=== PATIENT | male | born 1970 | race Caucasian/White ===

== ENCOUNTER 2023-03-17 07:25 | Inpatient (IN) ==
--- NOTE | 2023-03-13 14:57 | Anesthesiology Consultation ---
Date of Service March 13, 2023 Assessment & Plan (1) Encounter for pre-operative examination: Chart Review Chart Review: Pending: Refer to Additional Notes / Consult section (pending cardio clearance ) and Patient NOT seen in Pre Admission Testing - Please obtain cardiac clearance ([facility]) 03/12/23 - Please send preop testing to PCP (Dr Dafne Adan) per PCP request - Will leave to anesthesiologist's discretion if CXR needed DOS (hx of RA) -Infectious Disease screening: Per PAT nursing assessment on 03/13/23. No known infectious disease contacts in past 10 days or current infectious disease symptoms. No recent travel outside the country. Patient seen for PCP clearance 03/07/2023 = presents for preop evaluation. A ccording to the revised cardiac risk index, patient does have elevated risk for surgery... Therefore, patient is at least moderate risk for a low to moderate risk surgery. Refer to cardiology for cardiac clearance. History of CAD and percutaneous coronary intervention x2. We will see for preop 03/12/2023. Preop testing done at [facility]- will request copies. History Surgery Operation Date: 03/17/23 07:45 Proposed Procedures p L4-L5 Decomrpession, Possible Fusion, Spinal Cord Monitoring - David Stern, Height/Weight Height: 6 ft 3 in Weight: 136.531 kg Allergies Allergy/AdvReac Type Severity Reaction Status Date / Time epinephrine Allergy Intermediate "my BP Verified 03/10/23 13:17 drops, chest pain, hives" Medications Home Medications Medication Instructions Recorded Confirmed Last Taken aspirin 81 mg tablet,delayed 81 mg PO QAM 03/10/23 03/10/23 Unknown release bupropion HCl 100 mg tablet 200 mg PO BID 03/10/23 03/10/23 Unknown clopidogrel 75 mg tablet 75 mg PO QAM 03/10/23 03/10/23 Unknown duloxetine 60 mg capsule,delayed 60 mg PO QAM 03/10/23 03/10/23 Unknown release hydrochlorothiazide 25 mg tablet 25 mg PO QAM 03/10/23 03/10/23 Unknown lisinopril 40 mg tablet 40 mg PO HS 03/10/23 03/10/23 Unknown metoprolol tartrate 50 mg tablet 50 mg PO BID 03/10/23 03/10/23 Unknown multivitamin 1 tab PO QAM 03/10/23 03/10/23 Unknown rosuvastatin 20 mg tablet 20 mg PO HS 03/10/23 03/10/23 Unknown Past Medical History Medical History Anxiety CAD (coronary artery disease) s/p ANIKA and PTCA to OM1 07/[address] Watters Hadeed History of kidney stones Hyperlipidemia Hypertension On anticoagulant therapy plavix daily Rheumatoid arthritis Per PCP records Past Family History Family History Other No family history of adverse response to anesthesia Past Surgical History Surgical History History of cardiac cath 07/2021 @ [facility] for angina---2 stents placed--follows with Dr. Watters Hadeed History of cholecystectomy History of hand surgery left pinky finger--hardware later removed History of heart artery stent 2 placed 07/2021 @ [facility]--reason for plavix daily History of tooth extraction all upper teeth removed S/P cystoscopy with ureteral stent placement S/P hardware removal Social History Smoking Status: Former smoker Do You Dip or Chew Tobacco: No Smoking End Date: quit 2 1/2 months ago Hx Alcohol Use: No Hx Substance Use: No substance use type: does not use Lab Results Anesthesia Preop Results Results Anesthesia Widget: WBC 7.66 K/ul (4.8-10.8) 03/05/23 Hgb 14.5 g/dl (14.0-18.0) 03/05/23 Hct 42.6 % (42.0-52.0) 03/05/23 Plt 224 K/uL (130-400) 03/05/23 Na 139 mmol/L (136-145) 03/05/23 K 3.8 mmol/L (3.5-5.1) 03/05/23 Cl 102 mmol/L (98-107) 03/05/23 CO2 29 mmol/L (21-32) 03/05/23 BUN 12 mg/dl (6-23) 03/05/23 Creat 0.99 mg/dl (0.6-1.4) 03/05/23 Glucose Level 107 mg/dl (70-99(Fasting)) H 03/05/23 PT 11.3 Seconds (9.0-12.0) 03/05/23 PTT 29.9 Seconds (21.0-31.0) 03/05/23 INR 1.0 (0.9-1.1) 03/05/23 Urine Color Yellow 03/05/23 Urine Appearance Clear (Clear) 03/05/23 Urine pH 5.5 (4.5-7.5) 03/05/23 Urine Specific [place] 1.020 (1.000-1.030) 03/05/23 Urine Protein Negative (Negative) 03/05/23 Urine Glucose (UA) Negative (Negative) 03/05/23 Urine Ketones Negative (Negative) 03/05/23 Urine Blood Trace (Negative) H 03/05/23 Urine Nitrite Negative (Negative) 03/05/23 Urine Bilirubin Negative (Negative) 03/05/23 Urine Urobilinogen Negative (Negative) 03/05/23 Urine Leukocyte Esterase Negative (Negative) 03/05/23 Urine WBC (Auto) 1-5 /hpf (0-5) 03/05/23 Urine RBC (Auto) 0-4 /hpf (0-4) 03/05/23 Urine Hyaline Casts (Auto) 1-5 /lpf (0-5) 03/05/23 Urine Epithelial Cells (Auto) 5-10 /lpf (0-5) H 03/05/23 Urine Bacteria (Auto) Negative (Negative) 03/05/23 Blood Type A Positive 03/05/23 Antibody Screen NEGATIVE 03/05/23 Testing Laboratory Results 03/05/23= URINE CULTURE: No growth- less than 1000 colonies/mL Electrocardiogram Date: 03/05/23 Findings: + NSR @ (85bpm ) Rightward axis Chest X-Ray Date: 03/05/23 Findings: + NAD Echocardiogram Date: 09/07/21 EF: 65% LV Function: normal Other Findings: no LVH Valvular Disease: + no significant valvular disease LV not well visualized No pericardial effusion Stress Test Date: 10/15/22 Type: nuclear Valvular Disease: no significant valvular disease No stress-induced ischemia or angina Myocardial perfusion imaging is normal. Overall LV function is normal. Cardiac Catheterization Date: 08/02/21 LM= mild luminal irregularities LAD= mild luminal irregularities <30%; tubular 15% ostial lesion in LAD CX= Severe. OM 1 95-99%. OM2 95-99% RCA= <30% Successful PCI with ANIKA and PTCA to the OM1
[~2023-03-17 07:25] MED LIST: ACETAMINOPHEN 500 MG TAB PO SCH; CeleBREX 200 MG CAP PO SCH; GABAPENTIN 900 MG DOSE PO SCH; LR 15ML/HR IV SCH; LR 60ML/HR IV SCH
--- NOTE | 2023-03-17 09:30 | History & Physical Bridge Note ---
Date of Service March 17, 2023 History & Physical Bridge Note I have examined the patient, reviewed the History & Physical and in the interval since the performance of the History & Physical I have noted the following changes of clinical significance: no changes noted
--- NOTE | 2023-03-17 09:31 | History & Physical Report ---
Date of Service March 17, 2023 Assessment & Plan (1) Neurogenic claudication due to lumbar spinal stenosis: Plan: L4-5 decompression, possible fusion decompression L5-S1 History of Present Illness Chief Complaint: Back and bilateral leg pain Primary Care Provider: Dafne Adan DO This is a 52-year-old male who presents with chronic persistent back and leg pain and failing course of nonoperative care is here for surgical invention. Allergies Allergy/AdvReac Type Severity Reaction Status Date / Time epinephrine Allergy Intermediate "my BP Verified 03/10/23 13:17 drops, chest pain, hives" Home Medications Medication Instructions Recorded Confirmed Type aspirin 81 mg tablet,delayed 81 mg PO QAM 03/10/23 03/17/23 History release bupropion HCl 100 mg tablet 200 mg PO BID 03/10/23 03/17/23 History clopidogrel 75 mg tablet (Plavix) 75 mg PO QAM 03/10/23 03/17/23 History duloxetine 60 mg capsule,delayed 60 mg PO QAM 03/10/23 03/17/23 History release (Cymbalta) hydrochlorothiazide 25 mg tablet 25 mg PO QAM 03/10/23 03/17/23 History lisinopril 40 mg tablet 40 mg PO HS 03/10/23 03/17/23 History metoprolol tartrate 50 mg tablet 50 mg PO BID 03/10/23 03/17/23 History multivitamin 1 tab PO QAM 03/10/23 03/17/23 History rosuvastatin 20 mg tablet (Crestor) 20 mg PO HS 03/10/23 03/17/23 History Past Med/Surg History Medical History Anxiety CAD (coronary artery disease) s/p ANIKA and PTCA to OM1 07/[address] Watters Hadeed History of kidney stones Hyperlipidemia Hypertension On anticoagulant therapy plavix daily Rheumatoid arthritis Per PCP records Surgical History History of cardiac cath 07/2021 @ [facility] for angina---2 stents placed--follows with Dr. Duong Lyeed History of cholecystectomy History of hand surgery left pinky finger--hardware later removed History of heart artery stent 2 placed 07/2021 @ [facility]--reason for plavix daily History of tooth extraction all upper teeth removed S/P cystoscopy with ureteral stent placement S/P hardware removal Family History Other No family history of adverse response to anesthesia Social History Smoking Status: Former smoker Tobacco Type: Cigarettes Smoking End Date: quit 2 1/2 months ago; Second Hand Exposure: No; Do You Dip or Chew Tobacco: No; Tobacco Cessation Education Requested by Patient: No Hx Alcohol Use: No Hx Substance Use: No Preferred Language: Guyanese Communication Ability: Effective Yard Attendant Required: No Beliefs That Will Affect Care: Sabianist Sabianist Beliefs: Religious Current Living Situation: Spouse and Parent Current Living Situation Comment: Lives with and mother Other Information That Helps Us Care for You: No Feels Safe at Home: Yes Safety Concerns: Feels Safe At This Time Assistive Devices: Cane and Glasses Physical Exam Physical Exam: Patient is alert and oriented Heart regular rhythm Lungs clear Results & Data Results & Data Vital Signs (Past 12 Hours) Vital Signs Temp Pulse Resp BP Pulse Ox O2 Del Method 03/17/23 08:29 36.8 C 91 H 20 136/96 95 Room Air
[2023-03-17] MEDS ORDERED: ePHEDrine sulfate 50 MG/ML AMP IV PRN (09:32)
[2023-03-17] MEDS ORDERED: fentaNYL citrate PF 100 MCG/2 ML VIAL IV PRN (09:32)
[2023-03-17] MEDS ORDERED: ATROPINE SULFATE 0.1 MG/ML 10ML SYR IV PRN (09:32)
[2023-03-17] MEDS ORDERED: HYDROmorphone INJ 2 MG/ML SYR/VIAL IV PRN (09:32)
[2023-03-17] MEDS ORDERED: ONDANSETRON INJ 2 MG/ML 2 ML VIAL IV PRN ×2 (09:32→12:37)
[2023-03-17] MEDS ORDERED: BUPIVACAINE/EPINEPHRINE 0.25% 1:200,000 30 ML VIAL ONE (09:37)
[2023-03-17] MEDS ORDERED: ceFAZolin 330 MG/ML 1 GM VIAL ONE (09:37)
[2023-03-17] MEDS ORDERED: BUPIVACAINE 0.25% PF 30 ML VIAL ONE (09:49)
[2023-03-17] MEDS ORDERED: ROCURONIUM BROMIDE 10 MG/ML 5 ML VIAL IV ONE (09:51)
[2023-03-17] MEDS ORDERED: MIDAZOLAM HCL 1 MG/ML 2ML VIAL ONE (09:51)
[2023-03-17] MEDS ORDERED: PROPOFOL IV EMULSION 10 MG/ML 20 ML VIAL IV ONE (09:51)
[2023-03-17] MEDS ORDERED: fentaNYL citrate PF 100 MCG/2 ML VIAL ONE (09:51)
[2023-03-17] MEDS ORDERED: LIDOCAINE 2% 2 ML VIAL/AMP(20MG/ML) INFIL ONE (09:51)
[2023-03-17] MEDS ORDERED: KETAMINE 50 MG/5 ML SYRINGE ONE (10:36)
[2023-03-17] MEDS ORDERED: PHENYLEPHRINE 100MCG/ML 5ML SYR ONE (11:04)
[2023-03-17] MEDS ORDERED: PHENYLEPHRINE HCL 10 MG/ML VIAL ONE (11:04)
[2023-03-17] MEDS ORDERED: SUGAMMADEX SODIUM 200 MG/2 ML VIAL IV ONE (11:11)
[2023-03-17] MEDS ORDERED: FLOSEAL HEMOSTATIC MATRIX 10ML TOP ONE (11:14)
--- NOTE | 2023-03-17 11:14 | Operative Report ---
Post Operative Report Pre & Post Diagnosis Operation Date: 03/17/23 09:45 Pre-Op Diagnosis: Neurogenic claudication due to Lumbar Spinal Stenosis Lumbar epidural lipomatosis Morbid obesity Post-Op Diagnosis: Same I identified the patient and participated in the time-out.: Yes Procedure Operation Date: 03/17/23 09:45 Actual Procedures #1 lumbar decompression with bilateral medial facetectomies L4-L5 L5-S1. Surgeon David Stern, DO Duplicating Machine Operator Triny Rajput Estimated Blood Loss 10 Findings See Below The patient is 6 foot 3 weighing over 140 kg with a BMI in excess of 38. Patient's body habitus did create technical difficulty with positioning exposure adding at least 50% increased operative time. Specimens none Indications This is a 52-year-old male presents above-mentioned diagnosis after failing a course of nonoperative care is here for surgical invention. Description of Procedure Patient was met with identified informed consent obtained. Patient was then taken to the operative suite underwent ablation placed in a prone position the [place] able to Von frame. All bony promises well-padded eyes inspected to ensure no external pressure placed upon the. This point the lumbar spine was prepped and draped in normal sterile fashion. Sharp dissection with the assistance of Bovie cautery form down to and exposing the lamina of L4 and L5 bilaterally. Then performed a midline decompression including bilateral medial facetectomies at L4-L5 L5-S1. I identified and removed massive amounts of epidural lipomatosis both anteriorly and posterior to the dura. This was creating significant compression. After this complete the incision was copiously irrigated a 15 round ROCIO drain inserted. Was then closed with 1 Vicryl to fascia 2-0 Vicryl subcutaneously and 4 Monocryl for final closure. Steri- Strips sterile dressing placed. Patient waken taken to PACU stable condition. Please note spinal cord monitoring was utilized at the procedure no changes noted. Lastly Triny Rajput was present at the entire surgery involved the patient positioning complex portion of the surgery and final skin closure. I attest to the content of the Intraoperative Record and any orders documented therein. Any exceptions are noted below.
[2023-03-17] MEDS ORDERED: HYDROmorphone INJ 2 MG/ML SYR/VIAL ONE (11:23)
--- NOTE | 2023-03-17 11:28 | Fluoroscopy Report ---
FL lumbar spine 2-3V CLINICAL HISTORY: L4-L5 DECOMPRESSION AND FUSION COMPARISON STUDY: None. FLUOROSCOPY TIME: 2 seconds FLUOROSCOPY IMAGES: 1 Ka,r: 2.5 mGy FINDINGS: A surgical instrument and a surgical sponge posterior to the L5-S1 level. IMPRESSION: Fluoroscopic assistance as above. ACT 112: Negative or not required by law. Electronically signed by: Sergio Boston M.D. 03/17/2023 11:26 AM
--- NOTE | 2023-03-17 12:13 | Anesthesiology Progress Note ---
Date of Service March 17, 2023 Anesthesia Post Procedure Vital Signs Vital Signs: Temp Pulse Pulse Resp BP Pulse Ox O2 Del Method 03/17/23 12:00 93 H 14 128/70 96 Nasal Cannula 03/17/23 11:50 95 H 12 133/75 95 Nasal Cannula 03/17/23 11:40 91 H 17 134/84 93 Oxymask 03/17/23 11:34 36 C L 89 19 137/83 97 Oxymask 03/17/23 08:29 36.8 C 91 H 20 136/96 95 Room Air O2 Flow Rate 03/17/23 12:00 4 03/17/23 11:50 4 03/17/23 11:40 11 03/17/23 11:34 11 03/17/23 08:29 Pain Intensity Right Back: Pain Intensity: 6 Back: Pain Intensity: 4 Transfer of Care Handoff Completed per policy Notes Mental Status: alert / awake / arousable and participated in evaluation Patient Amnestic to Procedure: Yes Nausea / Vomiting: adequately controlled Pain: adequately controlled Airway Patency, RR, SpO2: stable & adequate BP & HR: stable & adequate Hydration State: stable & adequate Anesthetic Complications: no major complications apparent and Pt Satisfied with anesthetic care
[2023-03-17] MEDS ORDERED: NALOXONE HCL 0.4 MG/1 ML VIAL/CARP IV PRN (12:37)
[2023-03-17] MEDS ORDERED: hydrOXYzine HCl 25 MG TAB PO PRN (12:37)
[2023-03-17] MEDS ORDERED: bisacodyL 10 MG SUPP PR PRN (12:37)
[2023-03-17] MEDS ORDERED: DO NOT ADMINISTER FLU VACCINE PRN (12:37)
[2023-03-17] MEDS ORDERED: LORazepam 0.5 MG TAB PO PRN (12:37)
[2023-03-17] MEDS ORDERED: METOCLOPRAMIDE HCL INJ 5 MG/ML 2 ML VIAL IV PRN (12:37)
[2023-03-17] MEDS ORDERED: oxyCODONE HCL IR 5 MG TAB (IMMEDIATE RELEASE) PO PRN (12:37)
[2023-03-17] MEDS ORDERED: diphenhydrAMINE Capsule 25 MG CAP PO PRN (12:37)
[2023-03-17] MEDS ORDERED: GABAPENTIN 300 MG CAP PO PRN (12:37)
[2023-03-17] MEDS ORDERED: SOD PHOSPHATE/SOD BIPHOSPHATE ENEMA 132 ML BTL PR PRN (12:37)
[2023-03-17] MEDS ORDERED: ALUMINUM/MAGNESIUM SUSP 30 ML UDC PO PRN (12:37)
[2023-03-17] MEDS ORDERED: LORazepam 2 MG/1 ML VIAL IV PRN (12:37)
[2023-03-17] MEDS ORDERED: traMADol HCL 50 MG TABLET PO PRN (12:37)
[2023-03-17] MEDS ORDERED: ACETAMINOPHEN 500 MG TAB PO PRN (12:37)
[2023-03-17] MEDS ORDERED: ONDANSETRON 4 MG OD TAB PO PRN (12:37)
[2023-03-17] MEDS ORDERED: MAGNESIUM HYDROXIDE SUSP 30 ML UDC PO PRN (12:37)
[2023-03-17] MEDS ORDERED: ACETAMINOPHEN 1,000 MG/100 ML VIAL IV PRN (12:37)
[2023-03-17] MEDS ORDERED: HYDROmorphone INJ 0.5 MG/0.5 ML SYR IV PRN (12:37)
[2023-03-17] MEDS ORDERED: FAMOTIDINE 20 MG TAB PO PRN (12:37)
[2023-03-17] MEDS ORDERED: DO NOT ADMINISTER PNEUMOCOCCAL VACCINE PRN (12:37)
[2023-03-17] MEDS ORDERED: HYDROmorphone INJ 1 MG/ML SYRINGE IV PRN (12:37)
[2023-03-17] MEDS ORDERED: PROMETHAZINE HCL 12.5 MG in SODIUM CHLORIDE 0.9% 50 ML IV PRN (12:37)
[2023-03-17] MEDS: LACTATED RINGER'S 1,000 ML IV SCH ×2 (12:54→18:15)
[2023-03-17] MEDS: KETOROLAC 30 MG/ML VIAL IV SCH ×2 (15:29→21:17)
[2023-03-17] MEDS: ceFAZolin 2000MG 2,000 MG/15 ML SYR IV SCH (17:47)
--- NOTE | 2023-03-17 19:26 | Hospitalist Consultation ---
Date of Consultation March 17, 2023 Assessment & Plan (1) Neurogenic claudication due to lumbar spinal stenosis: Status post L4-L5, L5-S1 decompression Management will be as per orthopedic surgeon Minimal pain during examination without any radiculopathic symptoms We will monitor labs and electrolytes (2) CAD (coronary artery disease): History of CAD status post stent placement No acute cardiac symptoms We will continue current medications including aspirin and Plavix (3) Hypertension: Blood pressure is notably controlled continue with current medication (4) Hyperlipidemia: Continue statin (5) Rheumatoid arthritis: History of rheumatoid arthritis without any acute arthritic pain (6) History of kidney stones: No renal colic tender hematuria DVT prophylaxis As per Ortho CODE STATUS Full Remains medically stable History of Present Illness Reason for Consultation: Medical management following lumbar decompression and fusion Requesting Physician: Dr. Stern Attending Physician: David Stern, DO History of Present Illness He is a 52-year-old obese male significant past medical history of CAD s/p coronary stents, hypertension, hyperlipidemia and rheumatoid arthritis apparently underwent lumbar decompression and fusion involving L4-L5, L5-S1 distribution for chronic back pain and radiculopathy. He has been complaining of some back pain without any radiculopathic symptoms following surgery and denies any chest pain, shortness of breath or palpitation. He does not have any abdominal pain nausea or vomiting. Any fever and or chills. Allergies Allergy/AdvReac Type Severity Reaction Status Date / Time epinephrine Allergy Intermediate "my BP Verified 03/10/23 13:17 drops, chest pain, hives" Home Medications Medication Instructions Recorded Confirmed Type aspirin 81 mg tablet,delayed 81 mg PO QAM 03/10/23 03/17/23 History release bupropion HCl 100 mg tablet 200 mg PO BID 03/10/23 03/17/23 History clopidogrel 75 mg tablet (Plavix) 75 mg PO QAM 03/10/23 03/17/23 History duloxetine 60 mg capsule,delayed 60 mg PO QAM 03/10/23 03/17/23 History release (Cymbalta) hydrochlorothiazide 25 mg tablet 25 mg PO QAM 03/10/23 03/17/23 History lisinopril 40 mg tablet 40 mg PO HS 03/10/23 03/17/23 History metoprolol tartrate 50 mg tablet 50 mg PO BID 03/10/23 03/17/23 History multivitamin 1 tab PO QAM 03/10/23 03/17/23 History rosuvastatin 20 mg tablet (Crestor) 20 mg PO HS 03/10/23 03/17/23 History gabapentin 300 mg capsule 300 mg PO BID PRN Pain 03/17/23 03/17/23 History Patient History Medical History (Updated 03/17/23 @ 19:24 by Gisela Mayer MD) Anxiety CAD (coronary artery disease) s/p ANIKA and PTCA to OM1 07/[address] Watters Hadeed History of kidney stones Hyperlipidemia Hypertension On anticoagulant therapy plavix daily Rheumatoid arthritis Per PCP records Surgical History History of cardiac cath 07/2021 @ [facility] for angina---2 stents placed--follows with Dr. Watters Hadeed History of cholecystectomy History of hand surgery left pinky finger--hardware later removed History of heart artery stent 2 placed 07/2021 @ [facility]--reason for plavix daily History of tooth extraction all upper teeth removed S/P cystoscopy with ureteral stent placement S/P hardware removal Family History Other No family history of adverse response to anesthesia Social History Smoking Status: Former smoker Tobacco Type: Cigarettes Smoking End Date: quit 2 1/2 months ago; Second Hand Exposure: No; Do You Dip or Chew Tobacco: No; Tobacco Cessation Education Requested by Patient: No Hx Alcohol Use: No Hx Substance Use: No Preferred Language: Ecuadorean Communication Ability: Effective Splicer Helper Required: No Beliefs That Will Affect Care: Zoroastrianism Zoroastrianism Beliefs: Rastafarian Current Living Situation: Spouse and Parent Current Living Situation Comment: Lives with and mother Other Information That Helps Us Care for You: No Feels Safe at Home: Yes Safety Concerns: Feels Safe At This Time Assistive Devices: Cane and Glasses Review of Systems Review of Systems: All systems reviewed and are unremarkable except as noted below Physical Exam Physical Exam: Lying in bed comfortably Constitutional: well developed, well nourished, + ill appearing and + obese Eyes: PERRL, conjunctivae normal, anicteric sclerae ENMT: external ear and nose normal, oropharynx normal Neck: trachea midline, no thyromegaly Respiratory: no respiratory distress Auscultation: lungs clear to auscultation bilaterally and + diminished lung sounds Cardiovascular: Rate/Rhythm: regular rate and regular rhythm Heart Sounds: normal S1 and normal S2; no murmur Extremities: no edema Gastrointestinal (Abdomen): Inspection/Auscultation: normal bowel sounds; abdomen not distended Percussion/Palpation: abdomen soft; abdomen nontender Musculoskeletal: No acute arthritis involving any of the joint Neurologic: Alert, awake and oriented x3. No focal sensory or no motor deficit appreciated Psychiatric: A+Ox3, euthymic affect Lymphatic: no cervical or axillary lymphadenopathy Results & Data Results & Data Vital Signs (Past 12 Hours) Vital Signs Temp Pulse Pulse Resp BP Pulse Ox Pulse Ox 03/17/23 19:15 87 L 03/17/23 14:30 36.6 C 83 16 121/79 95 03/17/23 15:33 36.4 C L 82 16 119/79 94 03/17/23 12:12 96 03/17/23 12:30 03/17/23 13:25 36.6 C 89 16 129/80 93 03/17/23 12:58 37.0 C 83 16 108/71 93 03/17/23 12:30 37.0 C 88 16 101/68 95 03/17/23 12:20 81 12 118/86 93 03/17/23 12:10 36.5 C 88 12 107/67 93 03/17/23 12:00 93 H 14 128/70 96 03/17/23 11:50 95 H 12 133/75 95 03/17/23 11:40 91 H 17 134/84 93 03/17/23 11:34 36 C L 89 19 137/83 97 03/17/23 08:29 36.8 C 91 H 20 136/96 95 O2 Del Method O2 Del Method O2 Flow Rate O2 Flow Rate 03/17/23 19:15 Room Air 03/17/23 14:30 Nasal Cannula 2 03/17/23 15:33 Nasal Cannula 2 03/17/23 12:12 Nasal Cannula 3 03/17/23 12:30 Nasal Cannula 3 03/17/23 13:25 Nasal Cannula 2 03/17/23 12:58 Nasal Cannula 3 03/17/23 12:30 Nasal Cannula 3 03/17/23 12:20 Nasal Cannula 4 03/17/23 12:10 Nasal Cannula 4 03/17/23 12:00 Nasal Cannula 4 03/17/23 11:50 Nasal Cannula 4 03/17/23 11:40 Oxymask 11 03/17/23 11:34 Oxymask 11 03/17/23 08:29 Room Air Medications Administered Current Inpatient Medications Acetaminophen (Acetaminophen 500 Mg Tab) 1,000 mg PO Q8H PRN PRN Reason: MILD Pain Scale 1,2,3 & Pre PT Stop: 04/16/23 12:36 Al Hydrox/Mg Hydrox/Simethicone (Aluminum/Magnesium Susp 30 Ml Udc) 30 ml PO Q6H PRN PRN Reason: Dyspepsia Stop: 04/16/23 12:36 Aspirin (Aspirin 81 Mg Ectab) 81 mg PO [facility] Stop: 04/17/23 08:59 Bisacodyl (Bisacodyl 10 Mg Supp) 10 mg RI DAILY PRN PRN Reason: Constipation Stop: 04/16/23 12:36 Bupropion HCl (Bupropion Hcl 100 Mg Tablet) 200 mg PO BID [facility] Stop: 04/16/23 20:59 Diphenhydramine HCl (Diphenhydramine Capsule 25 Mg Cap) 25 mg PO Q6H PRN PRN Reason: Allergic Rhinitis/Insomnia Stop: 04/16/23 12:36 Duloxetine HCl (Duloxetine Hcl 60 Mg Cap) 60 mg PO [facility] Stop: 04/17/23 08:59 Famotidine (Famotidine 20 Mg Tab) 20 mg PO Q12H PRN PRN Reason: Dyspepsia Stop: 04/16/23 12:36 Gabapentin (Gabapentin 300 Mg Cap) 300 mg PO BID PRN PRN Reason: Pain Stop: 04/16/23 12:36 Hydrochlorothiazide (Hydrochlorothiazide 25 Mg Tab) 25 mg PO [facility] Stop: 04/17/23 08:59 Hydromorphone HCl (Hydromorphone Inj 0.5 Mg/0.5 Ml Syr) 0.5 mg IV Q3H PRN PRN Reason: MODERATE Pain (Scale 4,5,6) & Pre PT Stop: 03/31/23 12:36 Hydromorphone HCl (Hydromorphone Inj 1 Mg/Ml Syringe) 1 mg IV Q3H PRN PRN Reason: SEVERE Pain (Scale 7,8,9,10) Stop: 03/31/23 12:36 Hydroxyzine HCl (Hydroxyzine Hcl 25 Mg Tab) 25 mg PO Q8H PRN PRN Reason: Anxiety Stop: 04/16/23 12:36 Lactated Ringer's (Lr) 1,000 mls @ 15 mls/hr IV .Q24H ALEAH Stop: 03/18/23 05:59 Last Infusion: 03/17/23 10:05 Dose: Infused Lactated Ringer's (Lr) 1,000 mls @ 60 mls/hr IV .[id number] ALEAH Stop: 03/17/23 22:39 Last Admin: 03/17/23 08:24 Dose: Not Given Lactated Ringer's (Lr) 1,000 mls @ 150 mls/hr IV .[id number] ALEAH Stop: 04/16/23 12:36 Last Admin: 03/17/23 18:15 Dose: 150 mls/hr Promethazine HCl 12.5 mg/ (Sodium Chloride) 50.5 mls @ 202 mls/hr IV Q6H PRN PRN Reason: Nausea &/or Vomiting Stop: 04/16/23 12:36 Acetaminophen (Ofirmev) 1,000 mg in 100 mls @ 400 mls/hr IV Q8H PRN PRN Reason: Pain Rating 1-3 & Pre PT Stop: 03/18/23 12:37 Cefazolin Sodium (Ancef 2000mg) 2,000 mg in 15 mls @ 3.75 mls/min IV Q8H [facility]; Protocol Stop: 03/18/23 02:03 Last Admin: 03/17/23 17:47 Dose: 3.75 mls/min Influenza Virus Vaccine Quadrival (Do Not Administer Flu Vaccine) 1 each N/A PRN PRN PRN Reason: Notification Stop: 04/16/23 12:36 Ketorolac Tromethamine (Ketorolac 30 Mg/Ml Vial) 30 mg IV Q6H [facility] Stop: 03/18/23 10:01 Last Admin: 03/17/23 15:29 Dose: 30 mg Lisinopril (Lisinopril 40 Mg Tab) 40 mg PO HS ALEAH Stop: 04/16/23 20:59 Lorazepam (Lorazepam 0.5 Mg Tab) 0.5 mg PO Q8H PRN PRN Reason: Sedation/Anxiety Stop: 04/16/23 12:36 Lorazepam (Lorazepam 2 Mg/1 Ml Vial) 0.5 mg IV Q8H PRN PRN Reason: Sedation/Anxiety Stop: 04/16/23 12:36 Magnesium Hydroxide (Magnesium Hydroxide Susp 30 Ml Udc) 30 ml PO Q24H PRN PRN Reason: Constipation Stop: 04/16/23 12:36 Metoclopramide HCl (Metoclopramide Hcl Inj 5 Mg/Ml 2 Ml Vial) 10 mg IV Q6H PRN PRN Reason: Nausea &/or Vomiting Stop: 04/16/23 12:36 Metoprolol Tartrate (Metoprolol Tartrate 50 Mg Tab) 50 mg PO BID ALEAH Stop: 04/16/23 20:59 Multivitamins (Multivitamin Tab) 1 tab PO QAM [facility] Stop: 04/17/23 08:59 Naloxone HCl (Naloxone Hcl 0.4 Mg/1 Ml Vial/Carp) 0.1 mg IV Q5M PRN PRN Reason: Oversedation/Resp depression Stop: 04/16/23 12:36 Ondansetron HCl (Ondansetron Inj 2 Mg/Ml 2 Ml Vial) 4 mg IV Q6H PRN PRN Reason: Nausea &/or Vomiting Stop: 04/16/23 12:36 Ondansetron HCl (Ondansetron 4 Mg Od Tab) 4 mg PO Q6H PRN PRN Reason: Nausea Stop: 04/16/23 12:36 Oxycodone HCl (Oxycodone Hcl Ir 5 Mg Tab (Immediate Release)) 5 - 10 mg PO Q4H PRN PRN Reason: Pain & Pre PT Stop: 03/31/23 12:36 Last Admin: 03/17/23 17:46 Dose: 10 mg Pneumococcal Polyvalent Vaccine (Do Not Administer Pneumococcal Vaccine) 1 each N/A PRN PRN PRN Reason: Notification Stop: 04/16/23 12:36 Polyethylene Glycol (Polyethylene (Miralax) 17 Gm Pack) 17 gm PO Q6 ALEAH Stop: 04/17/23 05:59 Rosuvastatin Calcium (Rosuvastatin Calcium 20 Mg Tab) 20 mg PO HS [facility] Stop: 04/16/23 20:59 Senna/Docusate Sodium (Docusate Sodium/Senna 50/8.6mg Tab) 2 tab PO HS [facility] Stop: 04/16/23 20:59 Sodium Biphosphate/Sodium Phosphate (Sod Phosphate/Sod Biphosphate Enema 132 Ml Btl) 132 ml RI ONE PRN PRN Reason: Constipation Stop: 04/16/23 12:36 Tramadol HCl (Tramadol Hcl 50 Mg Tablet) 50 - 100 mg PO Q4H PRN PRN Reason: Moderate-Severe pain & Pre PT Stop: 04/16/23 12:36
[2023-03-17] MEDS ORDERED: ROSUVASTATIN CALCIUM 20 MG TAB PO SCH (21:00)
[2023-03-17] MEDS ORDERED: lisinopril 40 MG TAB PO SCH (21:00)
[2023-03-17] MEDS ORDERED: DOCUSATE SODIUM/SENNA 50/8.6MG TAB PO SCH (21:00)
[2023-03-17] MEDS: buPROPion HCl 100 MG TABLET PO SCH (21:15)
[2023-03-17] MEDS: METOPROLOL TARTRATE 50 MG TAB PO SCH (21:16)
[2023-03-18] MEDS: LACTATED RINGER'S 1,000 ML IV SCH (01:18)
[2023-03-18] MEDS: ceFAZolin 2000MG 2,000 MG/15 ML SYR IV SCH (01:18)
[2023-03-18] MEDS: KETOROLAC 30 MG/ML VIAL IV SCH ×2 (03:35→09:41)
[2023-03-18] MEDS: POLYETHYLENE (MIRALAX) 17 GM PACK PO SCH ×2 (06:13→12:32)
[2023-03-18 07:38] LABS: Basophils # (auto) 0.01 K/uL (0.00-0.20); Basophils % (auto) 0.1 %; Hematocrit (blood only) 36.5 % (42.0-52.0); Hemoglobin 12.2 g/dl (14.0-18.0); Immature Granulocytes # (auto) 0.06 K/uL (0.01-0.20); Immature Granulocytes % (auto) 0.5 %; Lymphocytes % (auto) 11.9 %; Mean Corpuscular Hemoglobin 30.8 pg (25.0-34.0); Mean Corpuscular Hgb Conc 33.4 g/dL (32.0-36.0); Mean Corpuscular Volume 92.2 fL (80.0-100.0); Mean Platelet Volume 11.4 fL (9.4-12.4); Monocytes # (auto) 0.84 K/uL (0.11-0.59); Monocytes % (auto) 7.2 %; Neutrophils # (auto) 9.43 K/uL (1.40-6.50); Neutrophils % (auto) 80.3 %; Platelet Count 195 K/uL (130-400); RDW Coefficient of Variation 14.1 % (11.5-14.5); RDW Standard Deviation 47.4 fL (36.4-46.3); Red Blood Count 3.96 M/uL (4.70-6.10); White Blood Count 11.74 K/ul (4.8-10.8)
[2023-03-18 08:02] LABS: BUN Creatinine Ratio 22.3 (10-20); Calcium 8.3 mg/dl (8.6-10.3); Creatinine Clr Calc Pharmacy 140.8 ml/min; Est GFR (African American) 108.4 ml/min; Est GFR (Non-African American) 93.5 ml/min; Magnesium 1.7 mg/dl (1.7-2.4); Potassium 4.4 mmol/L (3.5-5.1)
--- NOTE | 2023-03-18 08:22 | Discharge Summary ---
Date of Service March 18, 2023 Admission HPI Per Admitting Provider This is a 52-year-old male who presents with chronic persistent back and leg pain and failing course of nonoperative care is here for surgical invention. Principal Diagnosis Lumbar spinal stenosis with epidural lipomatosis Discharge Data Allergies Allergy/AdvReac Type Severity Reaction Status Date / Time epinephrine Allergy Intermediate "my BP Verified 03/10/23 13:17 drops, chest pain, hives" Consultations 03/17/23 12:37 Consult Hospitalist Routine Procedures Performed Operation Date: 03/17/23 09:45 Actual Procedures p L4-L5, L5-S1 Decompression, Spinal Cord Monitoring(Not Applicable) - David Stern DO Ordered Studies 03/17/23 09:45 [place] lumbar spine 2-3V Routine Hospital Course (1) Neurogenic claudication due to lumbar spinal stenosis: Patient went lumbar decompression tolerated this well was taken to orthopedic floor postoperatively postop day 1 he is up and ambulating pain well controlled. Excellent strength testing. ROCIO drain decreasing appropriate. Simply d ischarged home. Discharge orders and instructions found in chart for further review. Total Time Total Time Spent Total Time Spent (In Minutes): 20 minutes Discharge Plan Discharge Items Patient Disposition: Home - Self-Care Reason For Visit: Radiculopathy, Lumbar Region Discharge Diagnosis: Lumbar spinal stenosis with neurogenic claudication Activity: As commented below Non-emergency contact: Primary Care Provider Call non-emergency contact if: you have any medication questions Follow-up/Referrals: Dafne Adan DO [Primary Care Provider] - Diet: Regular Addtl Attending Provider Instructions: ACTIVITY RECOMMENDATIONS: SELF CARE INSTRUCTIONS AFTER A LAMINECTOMY 1. No prolonged sitting (less than 30 minutes for the first 3 weeks after surgery). 2. No bending, lifting more than 5 pounds, or twisting (roll like a log when turning in bed). 3. You may shower 3 days after surgery if no drainage from wound. Thoroughly dry wound. Do not soak in the tub. 4. Please walk as much as you can for exercise. Gradually increase the distance that you walk as your endurance increases. 5. You may drive in 7-10 days if you are comfortable and no longer requiring pain medications. SPECIAL CARE INSTRUCTIONS: VERY IMPORTANT TO READ AND REVIEW A. Your surgical incision has been closed with a cosmetic suture under the skin that will dissolve in about 6 weeks. In 14 days, you can use a pair of clean scissors and cut the suture that is left outside of the skin at the ends of your incision. B. Complications are uncommon, but please contact us if you have any signs or symptoms of: 1. wound infection (fever higher than 102.5 degrees F, redness, separation of wound, drainage, or increasing pain from the incision) 2. blood clots in legs (pain, swelling, redness and warmth in legs) 3. urinary tract infection (fever higher than 102.5 degrees, burning upon urination or increased frequency of urination) 4. nerve problems (inability to walk on your toes or heels, numbness, loss of bowel or bladder control) 5. any other symptoms that concern you. C. Please call the office at if you have any concerns or questions about your operation or recovery. MANAGING PAIN AFTER SPINAL SURGERY 1. Narcotic medication is intended for short-term use and will be provided for surgical pain. Surgical pain usually lasts for a period of 4-6 weeks. Narcotic medication includes Percocet, Vicodin, Darvocet, Tylenol #3 or Lortab. 2. Longer-term pain is more appropriately treated with non-narcotic medication such as Tylenol ES. 3. Muscle spasm is not appropriately treated with narcotics. Muscle relaxers such as Soma, Flexeril or Skelaxin can be used along with Tylenol ES. 4. Remember that we all live with some "aches and pains". This is not unusual or uncommon after an injury or as we get older. 5. We will provide appropriate medication within the normal guidelines of their prescribed use. We will also be very cautious and aware of potential abuse and extended duration of patients' medication needs. 6. Please allow 2-3 days to process refills. Prescriptions will not be mailed but must be picked up at the office. FOLLOW UP VISIT: Keep your scheduled follow-up appointment. Any questions, please call the office at . Pending Studies at Discharge: No Stand-Alone Forms: My [employer], Smoking Cessation Medications and DC Order Prescriptions: New tramadol 50 mg tablet 50 mg PO Q6H PRN (Reason: pain, moderate) Qty: 20 0RF oxycodone 5 mg tablet 5 mg PO Q6H PRN (Reason: pain) Qty: 2 0RF Continued clopidogrel [Plavix] 75 mg Tablet 75 mg PO QAM bupropion HCl 100 mg Tablet 200 mg PO BID hydrochlorothiazide 25 mg Tablet 25 mg PO QAM duloxetine [Cymbalta] 60 mg Capsule,Delayed Release(Dr/Ec) 60 mg PO QAM metoprolol tartrate 50 mg Tablet 50 mg PO BID rosuvastatin [Crestor] 20 mg Tablet 20 mg PO HS multivitamin Tablet 1 tab PO QAM aspirin 81 mg Tablet,Delayed Release (Dr/Ec) 81 mg PO QAM lisinopril 40 mg Tablet 40 mg PO HS gabapentin 300 mg Capsule 300 mg PO BID PRN (Reason: Pain) Admission Data Admit Date/Time: 03/17/23 11:19 Attending Provider: David Stern Admit Provider: David Stern Primary Care Provider: Dafne Adan Other Providers: Eliana Adame ; Leopoldo Palomares ; Emily Pacheco
[2023-03-18] MEDS: buPROPion HCl 100 MG TABLET PO SCH (08:52)
[2023-03-18] MEDS: METOPROLOL TARTRATE 50 MG TAB PO SCH (08:52)
[2023-03-18] MEDS ORDERED: hydroCHLOROthiazide 25 MG TAB PO SCH (09:00)
[2023-03-18] MEDS ORDERED: DULoxetine HCL 60 MG CAP PO SCH (09:00)
[2023-03-18] MEDS ORDERED: MULTIVITAMIN TAB PO SCH (09:00)
[2023-03-18] MEDS ORDERED: ASPIRIN 81 MG ECTAB PO SCH (09:00)
--- NOTE | 2023-03-18 10:36 | Hospitalist Progress Note ---
Date of Service March 18, 2023 Assessment & Plan (1) Neurogenic claudication due to lumbar spinal stenosis: Plan: Status post L4-L5, L5-S1 decompression Management will be as per orthopedic surgeon Acute blood loss anemia, expected surgical blood loss pre op hgb 14.5, POD #1 12.2 appropriate ROCIO drain output no further need to monitor (2) CAD (coronary artery disease): Plan: History of CAD status post stent placement No acute cardiac symptoms We will continue current medications including aspirin. Resume plavix at discretion of orthopedics (3) Hypertension: Plan: Blood pressure is notably controlled continue with current medication (4) Hyperlipidemia: Plan: Continue statin (5) Rheumatoid arthritis: Plan: History of rheumatoid arthritis without any acute arthritic pain (6) History of kidney stones: Plan: No renal colic tender hematuria DVT prophylaxis As per Ortho CODE STATUS Full Pt was seen and examined in collaboration with Dr. Palomares, please see addendum Thank you for this consultation. We will follow the patient with you during their hospital stay. You can reach a member of the [facility] Hospitalist Team 30/12 via hospitalist role on tiger text. Admission and Anticipated Discharge Date Admission Date: March 17, 2023 Supervising Physician Co-Signing Physician Notes Patient is seen and examined at bedside. Back pain at surgical site is controlled. Denies any chest pain, dyspnea, dizziness, nausea, vomiting, abdominal pain. Has been moving bowels. Offers no other complaints. On exam patient is obese, no apparent distress, normocephalic/atraumatic,, EOMI, normal breath sounds, clear to auscultation, S1-S2, no murmur, trace pedal edema, abdomen soft, nontender, normal bowel sounds, Back: Surgical site in dressing, + drain, alert, awake, oriented, grossly no focal deficits S/P lumbar decompression, fusion surgery Postoperative acute blood loss anemia Coronary artery disease Hypertension Rheumatoid arthritis HLP No indication for blood transfusion Mild leukocytosis, likely reactive Advised incentive spirometry Monitor CBC Wound care, activity, DVT prophylaxis per primary team Continue home medications Advised to follow-up with PCP upon discharge I personally reviewed the record. Patient is interviewed and examined at bedside. Patient's care is coordinated with Emily Pacheco PA-C. Please refer to the documentation above for details of patient's presentation and for discussion of other issues. Subjective Pt was seen and examined in 322-1. Follow up lumbar surgery. He Feels well this morning. Pain under good control. Already had a BM. He has been up and walking around. Denies f/c/s, chest pain, sob, n/v/d. Planning to discharge today. Review of Systems Review of Systems: All systems reviewed & are unremarkable except as noted in HPI & below Physical Exam Physical Exam: Gen: WD/WN, M, NAD, A&O x3 HEENT: Normocephalic, atraumatic, conjunctivae moist, sclerae anicteric, mucous membranes moist. Lung: Clear to Auscultation bilaterally, no wheezes/rales/rhonchi Heart: Regular rate, regular rhythm, no murmurs, rubs, or gallops Abdomen: Soft, NT, ND +BS x 4 Extremities: No edema, Lumbar dressing CDI, Rocio drain with sero sang drainage Skin: Warm, no rash, negative turgor. Results & Data Results & Data Vital Signs (Past 12 Hours) Vital Signs Temp Pulse Resp BP Pulse Ox O2 Del Method O2 Flow Rate 03/18/23 07:30 36.8 C 98 H 17 119/71 99 Room Air 03/18/23 06:12 104/63 03/18/23 03:41 36.5 C 88 18 95/60 L 98 Nasal Cannula 2 03/17/23 23:23 36.7 C 75 18 95/64 L 98 Nasal Cannula 2 Laboratory Results Short CBC 03/18/23 Range/Units 06:29 WBC 11.74 H (4.8-10.8) K/ul Hgb 12.2 L (14.0-18.0) g/dl Hct 36.5 L (42.0-52.0) % Plt Count 195 (130-400) K/uL BMP 03/18/23 06:29 Sodium 137 Potassium 4.4 Chloride 104 Carbon Dioxide 27 BUN 21 Creatinine 0.94 Glucose 124 H Calcium 8.3 L Medications Administered Current Inpatient Medications Acetaminophen (Acetaminophen 500 Mg Tab) 1,000 mg PO Q8H PRN PRN Reason: MILD Pain Scale 1,2,3 & Pre PT Stop: 04/16/23 12:36 Al Hydrox/Mg Hydrox/Simethicone (Aluminum/Magnesium Susp 30 Ml Udc) 30 ml PO Q6H PRN PRN Reason: Dyspepsia Stop: 04/16/23 12:36 Aspirin (Aspirin 81 Mg Ectab) [address] [facility] Stop: 04/17/23 08:59 Last Admin: 03/18/23 08:53 Dose: 81 mg Bisacodyl (Bisacodyl 10 Mg Supp) [address] DAILY PRN PRN Reason: Constipation Stop: 04/16/23 12:36 Bupropion HCl (Bupropion Hcl 100 Mg Tablet) 200 mg PO BID [facility] Stop: 04/16/23 20:59 Last Admin: 03/18/23 08:52 Dose: 200 mg Diphenhydramine HCl (Diphenhydramine Capsule 25 Mg Cap) 25 mg PO Q6H PRN PRN Reason: Allergic Rhinitis/Insomnia Stop: 04/16/23 12:36 Last Admin: 03/17/23 21:14 Dose: 25 mg Duloxetine HCl (Duloxetine Hcl 60 Mg Cap) [address] [facility] Stop: 04/17/23 08:59 Last Admin: 03/18/23 08:52 Dose: 60 mg Famotidine (Famotidine 20 Mg Tab) 20 mg PO Q12H PRN PRN Reason: Dyspepsia Stop: 04/16/23 12:36 Gabapentin (Gabapentin 300 Mg Cap) 300 mg PO BID PRN PRN Reason: Pain Stop: 04/16/23 12:36 Hydrochlorothiazide (Hydrochlorothiazide 25 Mg Tab) [address] [facility] Stop: 04/17/23 08:59 Last Admin: 03/18/23 08:52 Dose: 25 mg Hydromorphone HCl (Hydromorphone Inj 0.5 Mg/0.5 Ml Syr) 0.5 mg IV Q3H PRN PRN Reason: MODERATE Pain (Scale 4,5,6) & Pre PT Stop: 03/31/23 12:36 Hydromorphone HCl (Hydromorphone Inj 1 Mg/Ml Syringe) 1 mg IV Q3H PRN PRN Reason: SEVERE Pain (Scale 7,8,9,10) Stop: 03/31/23 12:36 Hydroxyzine HCl (Hydroxyzine Hcl 25 Mg Tab) 25 mg PO Q8H PRN PRN Reason: Anxiety Stop: 04/16/23 12:36 Promethazine HCl 12.5 mg/ (Sodium Chloride) 50.5 mls @ 202 mls/hr IV Q6H PRN PRN Reason: Nausea &/or Vomiting Stop: 04/16/23 12:36 Acetaminophen (Ofirmev) 1,000 mg in 100 mls @ 400 mls/hr IV Q8H PRN PRN Reason: Pain Rating 1-3 & Pre PT Stop: 03/18/23 12:37 Influenza Virus Vaccine Quadrival (Do Not Administer Flu Vaccine) 1 each N/A PRN PRN PRN Reason: Notification Stop: 04/16/23 12:36 Lisinopril (Lisinopril 40 Mg Tab) 40 mg PO HS [facility] Stop: 04/16/23 20:59 Last Admin: 03/17/23 21:16 Dose: 40 mg Lorazepam (Lorazepam 0.5 Mg Tab) 0.5 mg PO Q8H PRN PRN Reason: Sedation/Anxiety Stop: 04/16/23 12:36 Lorazepam (Lorazepam 2 Mg/1 Ml Vial) 0.5 mg IV Q8H PRN PRN Reason: Sedation/Anxiety Stop: 04/16/23 12:36 Magnesium Hydroxide (Magnesium Hydroxide Susp 30 Ml Udc) 30 ml PO Q24H PRN PRN Reason: Constipation Stop: 04/16/23 12:36 Metoclopramide HCl (Metoclopramide Hcl Inj 5 Mg/Ml 2 Ml Vial) 10 mg IV Q6H PRN PRN Reason: Nausea &/or Vomiting Stop: 04/16/23 12:36 Metoprolol Tartrate (Metoprolol Tartrate 50 Mg Tab) 50 mg PO BID [facility] Stop: 04/16/23 20:59 Last Admin: 03/18/23 08:52 Dose: 50 mg Multivitamins (Multivitamin Tab) 1 tab PO QAM [facility] Stop: 04/17/23 08:59 Last Admin: 03/18/23 08:52 Dose: 1 tab Naloxone HCl (Naloxone Hcl 0.4 Mg/1 Ml Vial/Carp) 0.1 mg IV Q5M PRN PRN Reason: Oversedation/Resp depression Stop: 04/16/23 12:36 Ondansetron HCl (Ondansetron Inj 2 Mg/Ml 2 Ml Vial) 4 mg IV Q6H PRN PRN Reason: Nausea &/or Vomiting Stop: 04/16/23 12:36 Ondansetron HCl (Ondansetron 4 Mg Od Tab) 4 mg PO Q6H PRN PRN Reason: Nausea Stop: 04/16/23 12:36 Oxycodone HCl (Oxycodone Hcl Ir 5 Mg Tab (Immediate Release)) 5 - 10 mg PO Q4H PRN PRN Reason: Pain & Pre PT Stop: 03/31/23 12:36 Last Admin: 03/17/23 17:46 Dose: 10 mg Pneumococcal Polyvalent Vaccine (Do Not Administer Pneumococcal Vaccine) 1 each N/A PRN PRN PRN Reason: Notification Stop: 04/16/23 12:36 Polyethylene Glycol (Polyethylene (Miralax) 17 Gm Pack) 17 gm PO Q6 ALEAH Stop: 04/17/23 05:59 Last Admin: 03/18/23 06:13 Dose: Not Given Rosuvastatin Calcium (Rosuvastatin Calcium 20 Mg Tab) 20 mg PO HS [facility] Stop: 04/16/23 20:59 Last Admin: 03/17/23 21:15 Dose: 20 mg Senna/Docusate Sodium (Docusate Sodium/Senna 50/8.6mg Tab) 2 tab PO HS [facility] Stop: 04/16/23 20:59 Last Admin: 03/17/23 21:15 Dose: 2 tab Sodium Biphosphate/Sodium Phosphate (Sod Phosphate/Sod Biphosphate Enema 132 Ml Btl) [address] ONE PRN PRN Reason: Constipation Stop: 04/16/23 12:36 Tramadol HCl (Tramadol Hcl 50 Mg Tablet) 50 - 100 mg PO Q4H PRN PRN Reason: Moderate-Severe pain & Pre PT Stop: 04/16/23 12:36
== END 2023-03-18 13:09 | disposition home or self-care (01) | DRG 519 ==
LOC: ASU 07:25 → 3E 11:19

== ENCOUNTER 2024-05-17 08:53 | Inpatient (IN) ==
--- NOTE | 2024-04-20 09:30 | PAT Medication Instructions ---
Medication Instructions Date of Service April 20, 2024 Home Medications aspirin 81 mg tablet,delayed release 81 mg PO QAM bupropion HCl 100 mg tablet 200 mg PO BID clopidogrel 75 mg tablet (Plavix) 75 mg PO QAM duloxetine 60 mg capsule,delayed release (Cymbalta) 60 mg PO HS hydrochlorothiazide 25 mg tablet 25 mg PO QAM lisinopril 40 mg tablet 40 mg PO HS metoprolol tartrate 50 mg tablet 50 mg PO BID multivitamin 1 tab PO HS rosuvastatin 20 mg tablet (Crestor) 20 mg PO HS cyclobenzaprine 10 mg tablet 10 mg PO BID PRN hydrocodone 5 mg-acetaminophen 325 mg tablet 1 tab PO Q6H PRN pregabalin 75 mg capsule 75 mg PO TID ASK your prescriber and surgeon aspirin 81 mg tablet,delayed release 81 mg PO QAM clopidogrel 75 mg tablet (Plavix) 75 mg PO QAM DO NOT take the morning of surgery hydrochlorothiazide 25 mg tablet 25 mg PO QAM Take morning of surgery With a small sip of water, OTHERWISE NOTHING TO EAT OR DRINK AFTER MIDNIGHT: bupropion HCl 100 mg tablet 200 mg PO BID metoprolol tartrate 50 mg tablet 50 mg PO BID cyclobenzaprine 10 mg tablet 10 mg PO BID PRN(if needed) hydrocodone 5 mg-acetaminophen 325 mg tablet 1 tab PO Q6H PRN(if needed) pregabalin 75 mg capsule 75 mg PO TID Take evening before surgery bupropion HCl 100 mg tablet 200 mg PO BID duloxetine 60 mg capsule,delayed release (Cymbalta) 60 mg PO HS lisinopril 40 mg tablet 40 mg PO HS metoprolol tartrate 50 mg tablet 50 mg PO BID multivitamin 1 tab PO HS rosuvastatin 20 mg tablet (Crestor) 20 mg PO HS cyclobenzaprine 10 mg tablet 10 mg PO BID PRN(if needed) hydrocodone 5 mg-acetaminophen 325 mg tablet 1 tab PO Q6H PRN(if needed) pregabalin 75 mg capsule 75 mg PO TID Other Notes If you have any questions please call us at [phone] or [phone] or [phone] or [phone]
--- NOTE | 2024-04-22 11:06 | Anesthesiology Consultation ---
Date of Service April 22, 2024 Assessment & Plan (1) Encounter for pre-operative examination: Chart Review Chart Review: Pending: Refer to Additional Notes / Consult section (pending preop CXR results, final cardio clearance and PCP clearance ) and Patient seen in Pre Admission Testing - Awaiting CXR results (per radiology- CXR image sent out for third green party reading- could take up to 72 hours) - Awaiting final cardio clearance - Awaiting PCP clearance- [facility] in [place] (04/19/24) Per PAT appt on 04/22/24, no recent illness/disease exposures, illness related symptoms, or recent illness/disease positive tests. Will leave to surgeon's discretion if preop Covid testing needed Patient seen by cardio 03/24/24= seen for follow up on CAD, HTN, HLD, tobacco user and ELOISA- doesn't use CPAP. Needs cardio clearance for upcoming back surgery. Continue current meds. Aggressive risk factor modification. Diet and exercise. Fasting lipid profile, stress test and ECHO ordered. L4-4 Decompression, L5-S1 decompression 03/17/23= Done under GA with Grade 1 view with MAC #4. ETT #8.0. Atraumatic x 1 Teaching & Discussion Pre-Anesthesia Teaching/Discussion Notes: Instructed NPO after midnight before surgery,except medications with 15 cc of water. Medication instructions provided according to the PAT guidelines. History Surgery Operation Date: 05/17/24 07:45 Proposed Procedures p L4-S1 Revision Decompression and Fusion, Spinal Cord Monitoring - David Stern, Height/Weight Height: 6 ft 3 in Weight: 139.8 kg Allergies Allergy/AdvReac Type Severity Reaction Status Date / Time epinephrine Allergy Intermediate "my BP Verified 04/13/24 09:45 drops, chest pain, hives" Medications Home Medications Medication Instructions Recorded Confirmed Last Taken aspirin 81 mg tablet,delayed 81 mg PO QAM 03/10/23 04/13/24 03/11/23 10:00 release bupropion HCl 100 mg tablet 200 mg PO BID 03/10/23 04/13/24 03/15/23 21:00 clopidogrel 75 mg tablet (Plavix) 75 mg PO QAM 03/10/23 04/13/24 03/11/23 10:00 duloxetine 60 mg capsule,delayed 60 mg PO HS 03/10/23 04/13/24 03/16/23 10:00 release (Cymbalta) hydrochlorothiazide 25 mg tablet 25 mg PO QAM 03/10/23 04/13/24 03/16/23 10:00 lisinopril 40 mg tablet 40 mg PO HS 03/10/23 04/13/24 03/15/23 21:00 metoprolol tartrate 50 mg tablet 50 mg PO BID 03/10/23 04/13/24 03/16/23 10:00 multivitamin 1 tab PO HS 03/10/23 04/13/24 03/12/23 10:00 rosuvastatin 20 mg tablet (Crestor) 20 mg PO HS 03/10/23 04/13/24 03/15/23 21:00 cyclobenzaprine 10 mg tablet 10 mg PO BID PRN muscle spasms 04/13/24 04/13/24 Unknown hydrocodone 5 mg-acetaminophen 325 1 tab PO Q6H PRN Pain 04/13/24 04/13/24 Unknown mg tablet pregabalin 75 mg capsule 75 mg PO TID 04/13/24 04/13/24 Unknown Past Medical History Medical History (Updated 04/22/24 @ 12:09 by Shannon Leggett PA-C) Anxiety CAD (coronary artery disease) s/p ANIKA x2 and PTCA to OM1 07/2021; mild LAD and RCA Disease per 07/[address] Watters Hadeed History of kidney stones no recent issues Hyperlipidemia Hypertension Neurogenic claudication due to lumbar spinal stenosis On anticoagulant therapy plavix daily Rheumatoid arthritis no rheum (due to insurance coverage)- waiting to get set up with new rheum - currently stable symptoms Sleep apnea non-compliant w/cpap, no longer has Exercise / Class Metabolic Activity II 4-5 Yardwork/Stairs/Walk up hill (one flight of stairs - no chest pain or SOB ) Past Family History Family History Other No family history of adverse response to anesthesia Past Surgical History Surgical History (Updated 04/13/24 @ 09:55 by Fatemeh Morrison) History of cardiac cath 07/2021 @ [facility] for angina---2 stents placed--follows with Dr. Watters Hadeed History of cholecystectomy History of hand surgery left pinky finger--hardware later removed History of heart artery stent 2 placed 07/2021 @ [facility]--reason for plavix daily History of tooth extraction all upper teeth removed Hx of lumbosacral spine surgery L4-S1 decompression and fusion, 03/2023, [facility] S/P cystoscopy with ureteral stent placement S/P hardware removal left 5th finger Past Anesthesia History No Hx of Anesthesia Complications and No Family Hx of Anesthesia Complications History of PONV No Hx of PONV and No Hx of Motion Sickness Social History Smoking Status: Former smoker Do You Dip or Chew Tobacco: No Smoking End Date: 6 weeks ago Hx Alcohol Use: No (in the past only) Hx Substance Use: No substance use type: does not use Review of Systems - Chronic cough due to smoking hx - stable Patient denies chest pain, shortness of breath, dyspnea on exertion, reflux, wheezing, palpitations. No hx of seizures, stroke. No hx of blood clots or blood transfusions Physical Exam Vital Signs VITALS BP 129/76 P 72 TEMP 98.0 SP02 98% RESP 16 Constitutional no acute distress ENMT Mouth: no TMJ clicking Thyromental Distance: > or= 3.5 Finger Breadths (3.5) Mallampati Class: III Mouth / Teeth: 2 1. Missing 2. Missing Missing all top teeth Missing bottom molars and see picture Neck + short neck, + thick neck, + limited neck extension and + facial hair (advised to shave ) Respiratory normal respiratory effort; no respiratory distress Auscultation: lungs clear to auscultation bilaterally and + diminished lung sounds (mildly throughout); no wheezes Cardiovascular Rate/Rhythm: regular rate and regular rhythm Heart Sounds: no murmur Vessels: no carotid bruit Heart sounds mildly diminished throughout Musculoskeletal Spine: no pain with cervical ROM Extremities: extremities normal to inspection Psychiatric Orientation: alert Lab Results Anesthesia Preop Results Results Anesthesia Widget: 2 WBC 5.85 K/ul (4.8-10.8) 04/22/24 Hgb 14.9 g/dl (14.0-18.0) 04/22/24 Hct 43.6 % (42.0-52.0) 04/22/24 Plt 211 K/uL (130-400) 04/22/24 Na 138 mmol/L (136-145) 04/22/24 K 3.5 mmol/L (3.5-5.1) 04/22/24 Cl 103 mmol/L (98-107) 04/22/24 CO2 28 mmol/L (21-32) 04/22/24 BUN 16 mg/dl (6-23) 04/22/24 Creat 0.99 mg/dl (0.6-1.4) 04/22/24 Glucose Level 105 mg/dl (70-99(Fasting)) H 04/22/24 PT 11.6 Seconds (9.0-12.0) 04/22/24 PTT 28 Seconds (21-31) 04/22/24 INR 1.1 (0.9-1.1) 04/22/24 Urine Color Dark Yellow 04/22/24 Urine Appearance Clear (Clear) 04/22/24 Urine pH 6.0 (4.5-7.5) 04/22/24 Urine Specific [place] 1.031 (1.000-1.030) H 04/22/24 Urine Protein Trace (Negative) H 04/22/24 Urine Glucose (UA) Negative (Negative) 04/22/24 Urine Ketones Trace (Negative) H 04/22/24 Urine Blood Negative (Negative) 04/22/24 Urine Nitrite Negative (Negative) 04/22/24 Urine Bilirubin 1+ (Negative) H 04/22/24 Urine Urobilinogen Negative (Negative) 04/22/24 Urine Leukocyte Esterase Trace (Negative) H 04/22/24 Urine WBC (Auto) 0-5 /hpf (0-5) 04/22/24 Urine RBC (Auto) 0-2 /hpf (0-2) 04/22/24 Urine Hyaline Casts (Auto) 0-2 /lpf (0-2) 04/22/24 Urine Epithelial Cells (Auto) 0-2 /hpf (0-2) 04/22/24 Urine Bacteria (Auto) None Seen (None Seen) 04/22/24 Blood Type A Positive 04/22/24 Antibody Screen NEGATIVE 04/22/24 Testing Electrocardiogram Date: 04/22/24 Findings: + NSR @ (72bpm) Rightward axis When compared to EKG from Mar 05, 2023- no significant change was found per cardio Echocardiogram Date: 04/08/24 EF: 55% LV appears to be top normal in size Normal RV size, thickness and systolic function Right and left atrium are top normal in size Aortic root appears to be mildly dilated Mitral valve poorly visualizedmild MR noted Tricuspid valve and aortic valve poorly visualized. No significant stenosis or regurgitation on aortic valve. No intracardiac thrombi masses or stones were seen. No significant pericardial effusion is noted Stress Test Date: 04/08/24 Type: nuclear Myocardial imaging is abnormal There is a small area of ischemia present in the anterior apical region Overall LV function is normal. EF 60% No stress-induced changes of ischemia or symptoms to suggest angina on EKG portion (Awaiting response from cardio if patient can proceed with lumbar surgery or if further evaluation needed) Cervical Spine Date: 04/22/24 FINDINGS: Straightening of the cervical spine is present, which may be positional or related to myospasm. Spine is otherwise normal in alignment. No evidence of instability on the flexion-extension views. C5-C6 and C6-C7 intervertebral disc spaces are mildly decreased. Vertebral body heights and other intervertebral disc spaces are preserved. Atlantoaxial joint is unremarkable. No prevertebral soft tissue abnormality. IMPRESSION: Mild degenerative disc disease at C5-C6 and C6-C7.
[2024-05-17] MEDS ORDERED: LIDOCAINE 2% 2 ML VIAL/AMP(20MG/ML) INFIL ONE (10:03)
[2024-05-17] MEDS ORDERED: DEXAMETHASONE SOD INJ 4 MG/ML VIAL ONE (10:03)
[2024-05-17] MEDS ORDERED: fentaNYL citrate PF 100 MCG/2 ML VIAL ONE (10:03)
[2024-05-17] MEDS ORDERED: ROCURONIUM BROMIDE 10 MG/ML 5 ML VIAL IV ONE (10:03)
[2024-05-17] MEDS ORDERED: MIDAZOLAM HCL 1 MG/ML 2ML VIAL ONE (10:03)
[2024-05-17] MEDS ORDERED: NEOSTIGMINE METHYLSULFATE 1 MG/ML 10ML VIAL ONE (10:03)
[2024-05-17] MEDS ORDERED: PROPOFOL IV EMULSION 10 MG/ML 20 ML VIAL IV ONE (10:03)
[2024-05-17] MEDS ORDERED: GLYCOPYRROLATE 0.2 MG/ML VIAL ONE (10:03)
[2024-05-17] MEDS ORDERED: ONDANSETRON INJ 2 MG/ML 2 ML VIAL ONE (10:03)
[2024-05-17] MEDS ORDERED: HYDROmorphone INJ 2 MG/ML SYR/VIAL ONE (10:03)
[2024-05-17] MEDS: GABAPENTIN 900 MG DOSE PO SCH (10:08)
[2024-05-17] MEDS: ACETAMINOPHEN 500 MG TAB PO SCH (10:08)
[2024-05-17] MEDS: CeleBREX 200 MG CAP PO SCH (10:08)
[2024-05-17] MEDS: SODIUM CHLORIDE 0.9% 1,000 ML IV SCH (10:16)
--- NOTE | 2024-05-17 10:31 | History & Physical Bridge Note ---
Date of Service May 17, 2024 History & Physical Bridge Note I have examined the patient, reviewed the History & Physical and in the interval since the performance of the History & Physical I have noted the following changes of clinical significance: no changes noted
--- NOTE | 2024-05-17 10:32 | History & Physical Report ---
Date of Service May 17, 2024 Assessment & Plan (1) Lumbosacral spondylosis with radiculopathy: Plan: L4-S1 revision decompression and fusion History of Present Illness Chief Complaint: Back and bilateral leg pain Primary Care Provider: Dafne Adan DO This is a 53-year-old male who presents for chronic persistent back and bilateral leg pain after failing course of nonoperative care is here for surgical invention. Allergies Allergy/AdvReac Type Severity Reaction Status Date / Time epinephrine Allergy Intermediate "my BP Verified 05/17/24 09:45 drops, chest pain, hives" Home Medications Medication Instructions Recorded Confirmed Type aspirin 81 mg tablet,delayed 81 mg PO QAM 03/10/23 05/17/24 History release bupropion HCl 100 mg tablet 200 mg PO BID 03/10/23 05/17/24 History clopidogrel 75 mg tablet (Plavix) 75 mg PO QAM 03/10/23 05/17/24 History duloxetine 60 mg capsule,delayed 60 mg PO HS 03/10/23 05/17/24 History release (Cymbalta) hydrochlorothiazide 25 mg tablet 25 mg PO QAM 03/10/23 05/17/24 History lisinopril 40 mg tablet 40 mg PO HS 03/10/23 05/17/24 History metoprolol tartrate 50 mg tablet 50 mg PO BID 03/10/23 05/17/24 History multivitamin 1 tab PO HS 03/10/23 05/17/24 History rosuvastatin 20 mg tablet (Crestor) 20 mg PO HS 03/10/23 05/17/24 History cyclobenzaprine 10 mg tablet 10 mg PO BID PRN muscle spasms 04/13/24 05/17/24 History hydrocodone 5 mg-acetaminophen 325 1 tab PO Q6H PRN Pain 04/13/24 05/17/24 History mg tablet pregabalin 75 mg capsule 75 mg PO TID 04/13/24 05/17/24 History Past Med/Surg History Problem List (Updated 05/17/24 @ 10:32 by David Stern DO) Lumbosacral spondylosis with radiculopathy Neurogenic claudication due to lumbar spinal stenosis Encounter for pre-operative examination Rheumatoid arthritis Per PCP records CAD (coronary artery disease) s/p ANIKA and PTCA to OM1 07/[address] Duong Herman History of kidney stones Hypertension Hyperlipidemia Medical History (Updated 05/17/24 @ 10:32 by David Stern DO) Sleep apnea non-compliant w/cpap, no longer has Neurogenic claudication due to lumbar spinal stenosis CAD (coronary artery disease) s/p ANIKA x2 and PTCA to OM1 07/2021; mild LAD and RCA Disease per 07/[address] Duong Lyeed Hypertension Hyperlipidemia Rheumatoid arthritis no rheum (due to insurance coverage)- waiting to get set up with new rheum - currently stable symptoms History of kidney stones no recent issues Anxiety On anticoagulant therapy plavix daily Surgical History Hx of lumbosacral spine surgery L4-S1 decompression and fusion, 03/2023, [facility] S/P hardware removal left 5th finger History of hand surgery left pinky finger--hardware later removed S/P cystoscopy with ureteral stent placement History of cholecystectomy History of tooth extraction all upper teeth removed History of heart artery stent 2 placed 07/2021 @ [facility]--reason for plavix daily History of cardiac cath 07/2021 @ [facility] for angina---2 stents placed--follows with Dr. Duong Herman Family History Other No family history of adverse response to anesthesia Social History Smoking Status: Former smoker Tobacco Type: Cigarettes Smoking End Date: 6 weeks ago; Second Hand Exposure: Yes (hx years ago); Do You Dip or Chew Tobacco: No; Tobacco Cessation Education Requested by Patient: No Hx Alcohol Use: No (in the past only) Hx Substance Use: No Preferred Language: Spanish Communication Ability: Effective Sampler Radioactive Waste Required: No Beliefs That Will Affect Care: None Current Living Situation: Spouse Current Living Situation Comment: Lives with and mother Other Information That Helps Us Care for You: No Feels Safe at Home: Yes Safety Concerns: Feels Safe At This Time Assistive Devices: Glasses Physical Exam Physical Exam: Patient is alert and oriented heart regular rhythm Lungs clear Results & Data Results & Data Vital Signs (Past 12 Hours) Vital Signs Temp Pulse Resp BP Pulse Ox O2 Del Method 05/17/24 09:48 Room Air 05/17/24 09:48 37.5 C 72 20 128/98 97 Room Air
[2024-05-17] MEDS: ceFAZolin 3000MG 3,000 MG/72.5 ML BAG IV SCH (11:05)
[2024-05-17] MEDS ORDERED: ePHEDrine sulfate 50 MG/5 ML SYR ONE (11:44)
[2024-05-17] MEDS: ceFAZolin 330 MG/ML 1 GM VIAL ONE (11:51)
[2024-05-17] MEDS: BUPIVACAINE/EPINEPHRINE 0.25% 1:200,000 30 ML VIAL ONE (11:51)
[2024-05-17] MEDS: SURGICEL ABSORB HEMOSTAT 2IN X 14IN TOP ONE (11:53)
[2024-05-17] MEDS ORDERED: SUGAMMADEX SODIUM 200 MG/2 ML VIAL IV ONE (12:27)
--- NOTE | 2024-05-17 13:30 | Operative Report ---
Post Operative Report Pre & Post Diagnosis Operation Date: 05/17/24 11:05 Pre-Op Diagnosis: Lumbar spondylosis with radiculopathy morbid obesity Post-Op Diagnosis: Same I identified the patient and participated in the time-out.: Yes Procedure Operation Date: 05/17/24 11:05 Actual Procedures #1 revision decompression bilateral medial facetectomies and foraminotomies L4- L5 L5-S1. #2 posterior spinal fusion L4-L5 L5-S1. #3 placed posterior instrumentation L4-L5 L5-S1. #4 interbody fusion L4-L5 L5-S1. #5 placement Spira 14 x 26 mm at L4-L5 and 13 x 26 mm at L5-S1. #6 placement locally harvested morselized autograft posterior gutters per #7 placement infuse collagen sponge combined with Koros in the posterior lateral gutters and os design and interbody space. Surgeon David Stern, Shop Router Triny Rajput Estimated Blood Loss 700 Findings See Below The patient is 6 foot 3 weighing over 142 kg with a BMI in excess of 39. Patient's body was did contribute to significant technical difficulty requiring deepest posterior tractors and longer instruments. This involved both positioning exposure and the procedure itself and at least 50% increased operative time. Specimens None Indications This is a 53-year-old male who presents publish diagnosis after failing course of nonoperative care is here for surgical invention. Description of Procedure Patient was met with identified informed consent obtained. Patient was then taken to the operative suite underwent intubation placed in a prone position on the Aquilino table on top of the Von frame. All bony prominences well-padded eyes inspected to ensure no external pressure placed upon them. This point the lumbar spine was prepped and draped in the normal sterile fashion. Sharp dissection with assistance of Bovie cautery was performed down to and exposing the remaining lamina transverse processes of L4-L5 and sacral ala bilaterally. I then performed a revision complete bilateral medial facetectomies and foraminotomies L5 addressing severe subarticular and foraminal disease. This was followed by complete laminectomy of L4 with bilateral medial facetectomies and foraminotomies addressing all spinal stenosis. Pedicle screws were then placed in L4-L5 and S1 levels bilaterally with assistance of fluoroscopy and the properly sized arjun contoured and placed. By way of transforaminal approach on the left complete discectomy of L4-5 was performed endplates corrected to subcortical bleeding bone and a 14 x 26 mm spiral cage filled with Oxyzyme tapped in position. Then proceeded to L5-S1 and by way of a transforaminal approach on the right complete discectomy performed endplates guided to subcortical bleeding bone and a 13 x 26 mm spiral cage filled with Oxyzyme tapped in position. The rods were then compressed locked in final position bilaterally. The transverse processes of L4-5 and sacral ala burred to subcortical bleeding bone. Infuse collagen sponge, with Koros and local autograft placed in posterior gutters. 15 round ROCIO drain inserted. The incision was then closed with 1 Vicryl the fascia 2-0 Vicryl subcutaneously and 4 Monocryl for final skin closure. Steri-Strips sterile dressing placed. Patient waken taken to PACU in stable condition. Please note spinal cord monitoring was utilized out the procedure no changes noted. Triny Rajput was present at the entire surgery and while the patient positioning complex portion of the surgery and fashion closure. Im ordering 20 grams of [place] Collagen Powder ([employer] [id number]) to treat an incision wound that was caused by a spine procedure. The incision is approximately 2 cm(W) x 4 cm(L) into the joint (D) in size and is a full thickness wound. [place] collagen comes in 1 gram packets so 20 packets were ordered. Given the size of the wound, with light to moderate exudate I chose to order a 20 day supply. The patient will be provided instructions for proper application of the collagen wound kit. The patient will be asked to apply the collagen powder daily and then cover it with sterile dressings dispensed. Collagen was selected as I expect the collagen to attract monocytes and fibroblasts, act as a sacrificial substrate for MMPs, and ultimately proved a matrix for tissue and vessel growth. The collagen will act as a primary dressing in this scenario. It is medically necessary for proper healing of these wounds to improve bioavailability and contact with each wound surface, this is also to help prevent infection of wounds and promote healing ultimately leading to a better healing outcome and limit the risk of infection. I attest to the content of the Intraoperative Record and any orders documented therein. Any exceptions are noted below.
[2024-05-17] MEDS: FLOSEAL HEMOSTATIC MATRIX 10ML TOP ONE (13:31)
--- NOTE | 2024-05-17 13:44 | Fluoroscopy Report ---
FL lumbar spine 2-3V CLINICAL HISTORY: L4-S1 REVISION DECOMP/FUSION COMPARISON STUDY: 03/17/2023 FLUOROSCOPY TIME: 36.9 seconds FLUOROSCOPY IMAGES: 2 EXPOSURE DOSE: 37.20 mGy FINDINGS: Posterior interbody arjun and screw fusion with discectomy noted at L4-S1. No unexpected opaq ue foreign bodies identified. The hardware appears intact. Note that the images were submitted following completion of the surgery. IMPRESSION: Fluoroscopic assistance as above. ACT 112: Negative or not required by law. Electronically signed by: Valentin Lara M.D. 05/17/2024 1:43 PM
[2024-05-17] MEDS ORDERED: ATROPINE SULFATE 0.1 MG/ML 10ML SYR IV PRN (14:29)
[2024-05-17] MEDS ORDERED: ePHEDrine sulfate 50 MG/ML AMP IV PRN (14:29)
[2024-05-17] MEDS ORDERED: DROPERIDOL 5 MG/2 ML VIAL IV PRN (14:29)
[2024-05-17] MEDS: PROMETHAZINE HCL 6.25 MG in SODIUM CHLORIDE 0.9% 50 ML IV PRN (14:33)
[2024-05-17] MEDS: PROMETHAZINE HCL INJ 25 MG/ML 1 ML VIAL ONE (14:34)
[2024-05-17] MEDS: HYDROmorphone INJ 2 MG/ML SYR/VIAL IV PRN (14:39)
--- NOTE | 2024-05-17 14:52 | Anesthesiology Progress Note ---
Date of Service May 17, 2024 Anesthesia Post Procedure Vital Signs Vital Signs: Temp Pulse Pulse Resp BP Pulse Ox O2 Del Method 05/17/24 14:45 80 12 122/78 92 Nasal Cannula 05/17/24 14:35 79 13 136/84 94 Nasal Cannula 05/17/24 14:25 84 12 141/83 H 97 Nasal Cannula 05/17/24 14:15 81 14 110/74 96 Nasal Cannula 05/17/24 14:05 82 12 115/71 93 Nasal Cannula 05/17/24 13:55 88 14 106/62 93 Nasal Cannula 05/17/24 13:45 37.3 C 80 14 110/58 L 96 Oxymask 05/17/24 09:48 Room Air 05/17/24 09:48 37.5 C 72 20 128/98 97 Room Air O2 Flow Rate 05/17/24 14:45 2 05/17/24 14:35 2 05/17/24 14:25 2 05/17/24 14:15 2 05/17/24 14:05 2 05/17/24 13:55 2 05/17/24 13:45 9 05/17/24 09:48 05/17/24 09:48 Pain Intensity Back: Pain Intensity: 8 Transfer of Care Handoff Completed per policy Notes Mental Status: alert / awake / arousable and participated in evaluation Nausea / Vomiting: adequately controlled Pain: adequately controlled Airway Patency, RR, SpO2: stable & adequate BP & HR: stable & adequate Hydration State: stable & adequate Anesthetic Complications: no major complications apparent and Pt Satisfied with anesthetic care
[2024-05-17] MEDS ORDERED: ACETAMINOPHEN 500 MG TAB PO PRN (16:10)
[2024-05-17] MEDS ORDERED: ONDANSETRON 4 MG OD TAB PO PRN (16:10)
[2024-05-17] MEDS ORDERED: FAMOTIDINE 20 MG TAB PO PRN (16:10)
[2024-05-17] MEDS ORDERED: LORazepam 2 MG/1 ML VIAL IV PRN (16:10)
[2024-05-17] MEDS ORDERED: CYCLOBENZAPRINE HCL 10 MG TAB PO PRN (16:10)
[2024-05-17] MEDS ORDERED: METOCLOPRAMIDE HCL INJ 5 MG/ML 2 ML VIAL IV PRN (16:10)
[2024-05-17] MEDS ORDERED: DO NOT ADMINISTER FLU VACCINE PRN (16:10)
[2024-05-17] MEDS ORDERED: HYDROmorphone INJ 1 MG/ML SYRINGE IV PRN (16:10)
[2024-05-17] MEDS ORDERED: PROMETHAZINE 12.5 MG/50.5 ML BAG IV PRN (16:10)
[2024-05-17] MEDS ORDERED: diphenhydrAMINE Capsule 25 MG CAP PO PRN (16:10)
[2024-05-17] MEDS ORDERED: LORazepam 0.5 MG TAB PO PRN (16:10)
[2024-05-17] MEDS ORDERED: DO NOT ADMINISTER PNEUMOCOCCAL VACCINE PRN (16:10)
[2024-05-17] MEDS ORDERED: NALOXONE HCL 0.4 MG/1 ML VIAL/CARP IV PRN (16:10)
[2024-05-17] MEDS ORDERED: ALUMINUM/MAGNESIUM SUSP 30 ML UDC PO PRN (16:10)
[2024-05-17] MEDS ORDERED: hydrOXYzine HCl 25 MG TAB PO PRN (16:10)
[2024-05-17] MEDS ORDERED: MAGNESIUM HYDROXIDE SUSP 30 ML UDC PO PRN (16:10)
[2024-05-17] MEDS ORDERED: SOD PHOSPHATE/SOD BIPHOSPHATE ENEMA 132 ML BTL PR PRN (16:10)
[2024-05-17] MEDS ORDERED: ONDANSETRON INJ 2 MG/ML 2 ML VIAL IV PRN (16:10)
[2024-05-17] MEDS ORDERED: bisacodyL 10 MG SUPP PR PRN (16:10)
[2024-05-17] MEDS ORDERED: ACETAMINOPHEN 1,000 MG/100 ML VIAL IV PRN (16:10)
[2024-05-17] MEDS: HYDROmorphone INJ 0.5 MG/0.5 ML SYR IV PRN (16:22)
[2024-05-17] MEDS: PREGABALIN 75 MG CAP PO SCH (16:22)
--- NOTE | 2024-05-17 16:33 | Hospitalist Consultation ---
Date of Consultation May 17, 2024 Assessment & Plan (1) Lumbosacral spondylosis with radiculopathy: This is a 53 y/o male with hx CAD s/p stent, rheumatoid arthritis, HTN, hyperlipidemia, ELOISA (not on CPAP), and lumbosacral spondylosis w/ radiculopathy who underwent revision of L4-S1 decompression and fusion today by Dr. Stern. Currently, he has no acute complaints post-operatively. Review of operative note reports EBL of 700 ml. - Pain control, activity, and DVT prophylaxis per primary service - Encourage incentive spirometry, wean O2 as tolerated - CBC in the AM to monitor for post-op blood loss anemia. Pre-op Hgb on 04/22/24 was 14.9 (2) Rheumatoid arthritis: Chronic, stable. No current complaints related to this. Does note some generalized aches and pains but attributes to falling down the stairs the day before the surgery. (3) CAD (coronary artery disease): Chronic, stable. Denies anginal symptoms Resume Plavix once okay with surgeon, continue aspirin (4) Sleep apnea: Does not use CPAP at home - monitor for nocturnal hypoxemia, especially if requiring narcotics for pain control (5) Hypertension: Chronic, stable. BP currently well-controlled with systolic in the 110s. Continue outpatient regimen. Monitor BP closely. Plan Pt seen and reviewed with collaborating physician, Dr. Flores. Plan of care reviewed and as outlined above. Thank you for this consultation. We will continue to follow the patient with you. [facility] available 30/12 via [employer]. Please don't hesitate to call with bridget dumont. Brittney Maria PA-C Supervising Physician Co-Signing Physician Notes 53-year-old male with PMH of CAD status post stent on DAPT, HTN, HLD, rheumatoid arthritis, ELOISA was seen and examined at bedside as a medical management after L4 S1 decompression and fusion today. Patient is hemodynamically stable postsurgery, cannot comment on his left lower extremity radicular signs and symptoms, reports operative site pain under control. Denies any febrile illness in the last 1 week. He reports falling down the stairs yesterday, denied telling anybody, denies hitting head, reports hitting various body parts, denies any particular excessive pain at the moment, unsure how he fell, denies syncopal event. no c-spine and pelvic tenderness on compression. Pain mx, bowel regimen, incentive spirometer. Labs in AM. resume plavix as able. if pt complains of pain (may realize when out of anesthesia and pain meds effects), get related imaging to rule out acute pathology given recent fall. On exam: GENERAL: Alert and oriented x3. NAD, on 2L NC O2. HEENT: No pallor, no icterus. Pupils equal, round and reactive to light. Oral mucosa moist. NECK: No JVD, no neck masses. NO c-spine tenderness. HEART: S1 and S2 heard. Regular rate and rhythm. No murmur, no gallop. RESPIRATORY SYSTEM: Normal AP diameter. No accessory muscle use. No wheezing, no crackles. ABDOMEN: Soft, bowel sounds present, nontender, no distention. no pelvic compression tenderness. CENTRAL NERVOUS SYSTEM: No facial droop. Speech is clear. Obeys simple commands. Moves extremities. EXTREMITIES: No edema, no erythema seen. Distal neurovascular status WNL. Lower back w/ clean dressing, c/d/i. ROCIO w/ moderate serosanguineous collection. I have seen and examined the patient and have discussed the case with the provider above. I agree with the assessment and plan as stated. Time spent: 20 min History of Present Illness Reason for Consultation: Post-operative Medical Management Requesting Physician: Dr. David Stern Attending Physician: David Stern, DO History of Present Illness This is a 53 y/o male with hx CAD s/p stent, rheumatoid arthritis, HTN, hyperlipidemia, ELOISA (not on CPAP), and lumbosacral spondylosis w/ radiculopathy who underwent revision of L4-S1 decompression and fusion today by Dr. Stern. We have been consulted to assist with post-operative medical management. EBL was 700 ml. He originally had an L4-S1 decompression and fusion on 03/17/23 but within a few months of the procedure he developed recurrent lower back pain. Post-operatively, he reports his pain is currently 5/10, and he feels generalized fatigued. He also notes falling down the stairs yesterday so he f eels generally sore today. He is unsure why he fell but does not think that he had a syncopal event, no specific injury noted. He denies chest pain or pressure, dyspnea, nausea, vomiting, abdominal pain, fevers, chills, sore throat, or dysphagia. He has chronic peripheral numbness and tingling that is unchanged. He is on aspirin and Plavix due to CAD s/p cardiac stent placement - Plavix has been on hold since last Friday. He denies anginal symptoms. Allergies Allergy/AdvReac Type Severity Reaction Status Date / Time epinephrine Allergy Intermediate "my BP Verified 05/17/24 09:45 drops, chest pain, hives" Home Medications Medication Instructions Recorded Confirmed Type aspirin 81 mg tablet,delayed 81 mg PO QAM 03/10/23 05/17/24 History release bupropion HCl 100 mg tablet 200 mg PO BID 03/10/23 05/17/24 History clopidogrel 75 mg tablet (Plavix) 75 mg PO QAM 03/10/23 05/17/24 History duloxetine 60 mg capsule,delayed 60 mg PO HS 03/10/23 05/17/24 History release (Cymbalta) hydrochlorothiazide 25 mg tablet 25 mg PO QAM 03/10/23 05/17/24 History lisinopril 40 mg tablet 40 mg PO HS 03/10/23 05/17/24 History metoprolol tartrate 50 mg tablet 50 mg PO BID 03/10/23 05/17/24 History multivitamin 1 tab PO HS 03/10/23 05/17/24 History rosuvastatin 20 mg tablet (Crestor) 20 mg PO HS 03/10/23 05/17/24 History cyclobenzaprine 10 mg tablet 10 mg PO BID PRN muscle spasms 04/13/24 05/17/24 History hydrocodone 5 mg-acetaminophen 325 1 tab PO Q6H PRN Pain 04/13/24 05/17/24 History mg tablet pregabalin 75 mg capsule 75 mg PO TID 04/13/24 05/17/24 History Patient History Medical History (Updated 05/17/24 @ 17:03 by Zuleika Maria PA-C) Sleep apnea non-compliant w/cpap, no longer has Neurogenic claudication due to lumbar spinal stenosis CAD (coronary artery disease) s/p ANIKA x2 and PTCA to OM1 07/2021; mild LAD and RCA Disease per 07/[address] Duong Hadeed Hypertension Hyperlipidemia Rheumatoid arthritis no rheum (due to insurance coverage)- waiting to get set up with new rheum - currently stable symptoms History of kidney stones no recent issues Anxiety Surgical History Hx of lumbosacral spine surgery L4-S1 decompression and fusion, 03/2023, [facility] S/P hardware removal left 5th finger History of hand surgery left pinky finger--hardware later removed S/P cystoscopy with ureteral stent placement History of cholecystectomy History of tooth extraction all upper teeth removed History of heart artery stent 2 placed 07/2021 @ [facility]--reason for plavix daily History of cardiac cath 07/2021 @ [facility] for angina---2 stents placed--follows with Dr. Duong Herman Family History Other No family history of adverse response to anesthesia Social History Smoking Status: Former smoker Tobacco Type: Cigarettes Smoking End Date: 6 weeks ago; Second Hand Exposure: Yes (hx years ago); Do You Dip or Chew Tobacco: No; Tobacco Cessation Education Requested by Patient: No Hx Alcohol Use: No (in the past only) Hx Substance Use: No Preferred Language: Upper Sorbian Communication Ability: Effective Social Worker Delinquency Prevention Required: No Beliefs That Will Affect Care: None Current Living Situation: Spouse Current Living Situation Comment: Lives with and mother Other Information That Helps Us Care for You: No Feels Safe at Home: Yes Safety Concerns: Feels Safe At This Time Assistive Devices: Glasses Review of Systems Review of Systems: All systems reviewed & are unremarkable except as noted in Subjective Physical Exam Physical Exam: General: awake, alert, NAD HEENT: no scleral icterus, moist oral mucosa Neck: supple, trachea midline Heart: RRR, no M/G/R Lungs: CTA bilaterally, no W/R/R Abdomen: soft, obese, NT, +BS Extremities: no pedal edema, distal pulses intact and equal Neurologic: moving all extremities, sensation intact bilateral LE, Ox3, no confusion or dysarthria Skin: warm, dry, ROCIO drain in place with scant sanguinous drainage Results & Data Results & Data Vital Signs (Past 12 Hours) Vital Signs Temp Pulse Pulse Resp BP Pulse Ox O2 Del Method 05/17/24 16:12 36.7 C 83 16 103/70 98 Nasal Cannula 05/17/24 15:25 83 14 112/76 96 Nasal Cannula 05/17/24 15:10 80 12 137/73 96 Nasal Cannula 05/17/24 14:55 36.6 C 80 12 111/74 96 Nasal Cannula 05/17/24 14:45 80 12 122/78 92 Nasal Cannula 05/17/24 14:35 79 13 136/84 94 Nasal Cannula 05/17/24 14:25 84 12 141/83 H 97 Nasal Cannula 05/17/24 14:15 81 14 110/74 96 Nasal Cannula 05/17/24 14:05 82 12 115/71 93 Nasal Cannula 05/17/24 13:55 88 14 106/62 93 Nasal Cannula 05/17/24 13:45 37.3 C 80 14 110/58 L 96 Oxymask 05/17/24 09:48 Room Air 05/17/24 09:48 37.5 C 72 20 128/98 97 Room Air O2 Flow Rate 05/17/24 16:12 4 05/17/24 15:25 2 05/17/24 15:10 2 05/17/24 14:55 2 05/17/24 14:45 2 05/17/24 14:35 2 05/17/24 14:25 2 05/17/24 14:15 2 05/17/24 14:05 2 05/17/24 13:55 2 05/17/24 13:45 9 05/17/24 09:48 05/17/24 09:48 (2) Rheumatoid arthritis Rheumatoid arthritis location: multiple sites Rheumatoid factor presence: with rheumatoid factor Qualified Code(s): M05.79 - Rheumatoid arthritis with rheumatoid factor of multiple sites without organ or systems involvement (3) CAD (coronary artery disease) Associated angina: without angina Coronary Disease-Associated Artery/Lesion type: [place] artery [place] vs. transplanted heart: [place] heart Qualified Code(s): I25.10 - Atherosclerotic heart disease of [place] coronary artery without angina pectoris (4) Sleep apnea Sleep apnea type: obstructive Qualified Code(s): G47.33 - Obstructive sleep apnea (adult) (pediatric) (5) Hypertension Hypertension type: unspecified Qualified Code(s): I10 - Essential (primary) hypertension
[2024-05-17] MEDS: LR 15ML/HR IV SCH (17:17)
[2024-05-17] MEDS: LR 60ML/HR IV SCH (17:17)
[2024-05-17] MEDS: buPROPion SR 100 MG TABCR PO SCH (20:22)
[2024-05-17] MEDS: ceFAZolin 2000MG 2,000 MG/15 ML SYR IV SCH (20:22)
[2024-05-17] MEDS: DOCUSATE SODIUM/SENNA 50/8.6MG TAB PO SCH (20:22)
[2024-05-17] MEDS: lisinopril 40 MG TAB PO SCH (20:23)
[2024-05-17] MEDS: METOPROLOL TARTRATE 50 MG TAB PO SCH (20:23)
[2024-05-17] MEDS: ROSUVASTATIN CALCIUM 20 MG TAB PO SCH (20:23)
[2024-05-17] MEDS: DULoxetine HCL 60 MG CAP PO SCH (20:23)
[2024-05-17] MEDS: MULTIVITAMIN TAB PO SCH (20:24)
[2024-05-18] MEDS: POLYETHYLENE (MIRALAX) 17 GM PACK PO SCH (05:29)
[2024-05-18] MEDS: oxyCODONE HCL IR 5 MG TAB (IMMEDIATE RELEASE) PO PRN (05:34)
--- NOTE | 2024-05-18 07:34 | Hospitalist Progress Note ---
Date of Service May 18, 2024 Assessment & Plan (1) Lumbosacral spondylosis with radiculopathy: Plan: This is a 53 y/o male with hx CAD s/p stent, rheumatoid arthritis, HTN, hyperlipidemia, ELOISA (not on CPAP), and lumbosacral spondylosis w/ radiculopathy who underwent revision of L4-S1 decompression and fusion by Dr. Stern. Reported no acute complaints post-operatively. Review of operative note reports EBL of 700 ml. - Pain control, activity, and DVT prophylaxis per primary service - Encourage incentive spirometry, wean O2 as tolerated - CBC in the AM to monitor for post-op blood loss anemia. Pre-op Hgb on 04/22/24 was 14.9 Acute blood loss anemia, post-op, vs. dilutional - current Hgb 12.4, pre-op Hgb 14.9 - no need for blood transfusion at this time - cont. to monitor H&H (2) Rheumatoid arthritis: Plan: Chronic, stable. No current complaints related to this. Does note some generalized aches and pains but attributes to falling down the stairs the day before the surgery. (3) CAD (coronary artery disease): Plan: Chronic, stable. Denies anginal symptoms Resume Plavix once okay with surgeon, continue aspirin (4) Sleep apnea: Plan: Does not use CPAP at home - monitor for nocturnal hypoxemia, especially if requiring narcotics for pain control (5) Hypertension: Plan: Hold HCTZ, lisinopril while inpt Monitor BP closely. Update: BP lower this PM (despite holding HCTZ and ACEi) - pt asymptomatic , will provide gentle IVF and encourage PO fluid intake Plan Thank you for this consultation. We will continue to follow the patient with you. A member of the [facility]ist team is available 30/12 via [employer]. Admission and Anticipated Discharge Date Admission Date: May 17, 2024 Subjective Pt seen in follow up of med consult s/p spinal surgery Currently sitting up in bed in NAD Reports he has been ambulating well, denies any dizziness or lightheadedness when ambulating No fever, chills, chest pain, or shortness of breath Voiding w/o difficulty, passing flatus, no BM yet. Has a good appetite. Review of Systems Review of Systems: All systems reviewed & are unremarkable except as noted in Subjective Physical Exam Physical Exam: GENERAL: obese M. Alert and oriented x3. NAD, on RA HEENT: NC/AT. EOMI. NECK: supple HEART: rrr. No murmur, no gallop. RESPIRATORY: Normal AP diameter. No accessory muscle use. No wheezing, no crackles. ABDOMEN: Soft, bowel sounds present, nontender, no distention NEURO: Awake, alert, oriented, answers appropriately. No facial droop. Speech is clear. Moves extremities. EXTREMITIES: No edema, no erythema seen. moves extremities. Lower back w/ clean dressing, c/d/i. ROCIO w/ moderate serosanguineous collection. SKIN: dry, warm Results & Data Results & Data Vital Signs (Past 12 Hours) Vital Signs Temp Pulse Pulse Resp BP Pulse Ox O2 Del Method 05/18/24 03:00 36.9 C 90 16 101/65 96 Room Air 05/17/24 23:57 36.8 C 88 16 117/67 92 Room Air 05/17/24 19:42 36.7 C 88 18 130/82 94 Room Air Laboratory Results 05/18/24 05/17/24 Range/Units 07:44 09:51 WBC 17.56 H (4.8-10.8) K/ul RBC 4.08 L (4.70-6.10) M/uL Hgb 12.4 L (14.0-18.0) g/dl Hct 36.7 L (42.0-52.0) % MCV 90.0 (80.0-100.0) fL MCH 30.4 (25.0-34.0) pg MCHC 33.8 (32.0-36.0) g/dL RDW Std Deviation 45.2 (36.4-46.3) fL RDW Coeff of Evans 14.0 (11.5-14.5) % Plt Count 220 (130-400) K/uL MPV 11.5 (9.4-12.4) fL Immature Gran % (Auto) 0.7 % Neut % (Auto) 77.9 % Lymph % (Auto) 10.3 % [place] % (Auto) 11.0 % Eos % (Auto) 0.0 % Baso % (Auto) 0.1 % Neut # (Auto) 13.66 H (1.40-6.50) K/uL Lymph # (Auto) 1.81 (1.20-3.40) K/uL [place] # (Auto) 1.94 H (0.11-0.59) K/uL Eos # (Auto) 0.00 (0.00-0.50) K/uL Baso # (Auto) 0.02 (0.00-0.20) K/uL Immature Gran # (Auto) 0.13 (0.01-0.20) K/uL Sodium 136 (136-145) mmol/L Potassium 4.0 (3.5-5.1) mmol/L Chloride 101 (98-107) mmol/L Carbon Dioxide 26 (21-32) mmol/L Anion Gap 9 (3-11) BUN 18 (6-23) mg/dl Creatinine 0.86 (0.6-1.4) mg/dl Est Cr Clr Drug Dosing 147.3 ml/min eGFR 104.18 BUN/Creatinine Ratio 20.9 H (10-20) Glucose 150 H (70-99(Fasting)) mg/dl Calcium 8.3 L (8.6-10.3) mg/dl Phosphorus 3.3 (2.5-4.9) mg/dl Magnesium 1.7 (1.7-2.4) mg/dl Crossmatch See Detail Medications Administered Current Inpatient Medications Acetaminophen (Acetaminophen 500 Mg Tab) 1,000 mg PO Q8H PRN PRN Reason: MILD Pain Scale 1,2,3 & Pre PT Stop: 06/16/24 16:09 Al Hydrox/Mg Hydrox/Simethicone (Aluminum/Magnesium Susp 30 Ml Udc) 30 ml PO Q6H PRN PRN Reason: Dyspepsia Stop: 06/16/24 16:09 Aspirin (Aspirin 81 Mg Ectab) 81 mg PO QAM [facility] Stop: 06/17/24 08:59 Bisacodyl (Bisacodyl 10 Mg Supp) 10 mg VT DAILY PRN PRN Reason: Constipation Stop: 06/16/24 16:09 Bupropion HCl (Bupropion Sr 100 Mg Tabcr) 200 mg PO BID [facility] Stop: 06/16/24 20:59 Last Admin: 05/17/24 20:22 Dose: 200 mg Cyclobenzaprine HCl (Cyclobenzaprine Hcl 10 Mg Tab) 10 mg PO BID PRN PRN Reason: muscle spasms Stop: 06/16/24 16:09 Diphenhydramine HCl (Diphenhydramine Capsule 25 Mg Cap) 25 mg PO Q6H PRN PRN Reason: Allergic Rhinitis/Insomnia Stop: 06/16/24 16:09 Duloxetine HCl (Duloxetine Hcl 60 Mg Cap) 60 mg PO HS [facility] Stop: 06/16/24 20:59 Last Admin: 05/17/24 20:23 Dose: 60 mg Famotidine (Famotidine 20 Mg Tab) 20 mg PO Q12H PRN PRN Reason: Dyspepsia Stop: 06/16/24 16:09 Hydrochlorothiazide (Hydrochlorothiazide 25 Mg Tab) 25 mg PO QAM [facility] Stop: 06/17/24 08:59 Hydromorphone HCl (Hydromorphone Inj 0.5 Mg/0.5 Ml Syr) 0.5 mg IV Q3H PRN PRN Reason: MODERATE Pain (Scale 4,5,6) & Pre PT Stop: 05/31/24 16:09 Last Admin: 05/17/24 16:22 Dose: 0.5 mg Hydromorphone HCl (Hydromorphone Inj 1 Mg/Ml Syringe) 1 mg IV Q3H PRN PRN Reason: SEVERE Pain (Scale 7,8,9,10) Stop: 05/31/24 16:09 Hydroxyzine HCl (Hydroxyzine Hcl 25 Mg Tab) 25 mg PO Q8H PRN PRN Reason: Anxiety Stop: 06/16/24 16:09 Sodium Chloride (Nss) 1,000 mls @ 15 mls/hr IV .Q24H [facility] Stop: 05/18/24 10:14 Last Infusion: 05/17/24 11:03 Dose: Infused Acetaminophen (Ofirmev) 1,000 mg in 100 mls @ 400 mls/hr IV Q8H PRN PRN Reason: Pain Rating 1-3 & Pre PT Stop: 05/18/24 16:10 Promethazine HCl (Phenergan) 12.5 mg in 50.5 mls @ 202 mls/hr IV Q6H PRN PRN Reason: Nausea And Vomiting Stop: 06/16/24 16:09 Dexamethasone 6 mg/ Syringe 1.5 mls @ 1 mls/min IV DAILY [facility] Stop: 05/20/24 09:02 Influenza Virus Vaccine Quadrival (Do Not Administer Flu Vaccine) 1 each N/A PRN PRN PRN Reason: Notification Stop: 06/16/24 16:09 Lisinopril (Lisinopril 40 Mg Tab) 40 mg PO HS [facility] Stop: 06/16/24 20:59 Last Admin: 05/17/24 20:23 Dose: 40 mg Lorazepam (Lorazepam 0.5 Mg Tab) 0.5 mg PO Q8H PRN PRN Reason: Sedation/Anxiety Stop: 06/16/24 16:09 Lorazepam (Lorazepam 2 Mg/1 Ml Vial) 0.5 mg IV Q8H PRN PRN Reason: Sedation/Anxiety Stop: 06/16/24 16:09 Magnesium Hydroxide (Magnesium Hydroxide Susp 30 Ml Udc) 30 ml PO Q24H PRN PRN Reason: Constipation Stop: 06/16/24 16:09 Metoclopramide HCl (Metoclopramide Hcl Inj 5 Mg/Ml 2 Ml Vial) 10 mg IV Q6H PRN PRN Reason: Nausea &/or Vomiting Stop: 06/16/24 16:09 Metoprolol Tartrate (Metoprolol Tartrate 50 Mg Tab) 50 mg PO BID [facility] Stop: 06/16/24 20:59 Last Admin: 05/17/24 20:23 Dose: 50 mg Multivitamins (Multivitamin Tab) 1 tab PO [facility] Stop: 06/16/24 20:59 Last Admin: 05/17/24 20:24 Dose: 1 tab Naloxone HCl (Naloxone Hcl 0.4 Mg/1 Ml Vial/Carp) 0.1 mg IV Q5M PRN PRN Reason: Oversedation/Resp depression Stop: 06/16/24 16:09 Ondansetron HCl (Ondansetron Inj 2 Mg/Ml 2 Ml Vial) 4 mg IV Q6H PRN PRN Reason: Nausea &/or Vomiting Stop: 06/16/24 16:09 Ondansetron HCl (Ondansetron 4 Mg Od Tab) 4 mg PO Q6H PRN PRN Reason: Nausea Stop: 06/16/24 16:09 Oxycodone HCl (Oxycodone Hcl Ir 5 Mg Tab (Immediate Release)) 5 - 10 mg PO Q4H PRN PRN Reason: Pain & Pre PT Stop: 05/31/24 16:09 Last Admin: 05/18/24 05:34 Dose: 5 mg Pneumococcal Polyvalent Vaccine (Do Not Administer Pneumococcal Vaccine) 1 each N/A PRN PRN PRN Reason: Notification Stop: 06/16/24 16:09 Polyethylene Glycol (Polyethylene (Miralax) 17 Gm Pack) 17 gm PO Q6 [facility] Stop: 06/17/24 05:59 Last Admin: 05/18/24 05:29 Dose: 17 gm Pregabalin (Pregabalin 75 Mg Cap) 75 mg PO TID [facility] Stop: 06/16/24 16:09 Last Admin: 05/17/24 20:25 Dose: 75 mg Rosuvastatin Calcium (Rosuvastatin Calcium 20 Mg Tab) 20 mg PO HS [facility] Stop: 06/16/24 20:59 Last Admin: 05/17/24 20:23 Dose: 20 mg Senna/Docusate Sodium (Docusate Sodium/Senna 50/8.6mg Tab) 2 tab PO HS [facility] Stop: 06/16/24 20:59 Last Admin: 05/17/24 20:22 Dose: 2 tab Sodium Biphosphate/Sodium Phosphate (Sod Phosphate/Sod Biphosphate Enema 132 Ml Btl) 132 ml VT ONE PRN PRN Reason: Constipation Stop: 06/16/24 16:09 Tramadol HCl (Tramadol Hcl 50 Mg Tablet) 50 - 100 mg PO Q4H PRN PRN Reason: Moderate-Severe pain & Pre PT Stop: 06/16/24 16:09 (2) Rheumatoid arthritis Rheumatoid arthritis location: multiple sites Rheumatoid factor presence: with rheumatoid factor Qualified Code(s): M05.79 - Rheumatoid arthritis with rheumatoid factor of multiple sites without organ or systems involvement (3) CAD (coronary artery disease) Associated angina: without angina Coronary Disease-Associated Artery/Lesion type: [place] artery [place] vs. transplanted heart: [place] heart Qualified Code(s): I25.10 - Atherosclerotic heart disease of [place] coronary artery without angina pectoris (4) Sleep apnea Sleep apnea type: obstructive Qualified Code(s): G47.33 - Obstructive sleep apnea (adult) (pediatric) (5) Hypertension Hypertension type: unspecified Qualified Code(s): I10 - Essential (primary) hypertension
[2024-05-18 08:29] LABS: Basophils # (auto) 0.02 K/uL (0.00-0.20); Basophils % (auto) 0.1 %; Hematocrit (blood only) 36.7 % (42.0-52.0); Hemoglobin 12.4 g/dl (14.0-18.0); Immature Granulocytes # (auto) 0.13 K/uL (0.01-0.20); Immature Granulocytes % (auto) 0.7 %; Lymphocytes # (auto) 1.81 K/uL (1.20-3.40); Lymphocytes % (auto) 10.3 %; Mean Corpuscular Hemoglobin 30.4 pg (25.0-34.0); Mean Corpuscular Hgb Conc 33.8 g/dL (32.0-36.0); Mean Platelet Volume 11.5 fL (9.4-12.4); Monocytes # (auto) 1.94 K/uL (0.11-0.59); Neutrophils # (auto) 13.66 K/uL (1.40-6.50); Neutrophils % (auto) 77.9 %; Platelet Count 220 K/uL (130-400); RDW Standard Deviation 45.2 fL (36.4-46.3); Red Blood Count 4.08 M/uL (4.70-6.10); White Blood Count 17.56 K/ul (4.8-10.8)
[2024-05-18 08:37] LABS: BUN Creatinine Ratio 20.9 (10-20); Calcium 8.3 mg/dl (8.6-10.3); Creatinine Clr Calc Pharmacy 147.3 ml/min; Magnesium 1.7 mg/dl (1.7-2.4); Phosphorus 3.3 mg/dl (2.5-4.9)
--- NOTE | 2024-05-18 08:57 | Orthopedic Progress Note ---
Date of Service May 18, 2024 Assessment & Plan (1) Lumbosacral spondylosis with radiculopathy: Plan: This time initiate physical therapy monitor his ROCIO output over the discharge home in the next few days. Admission and Anticipated Discharge Date Admission Date: May 17, 2024 Subjective Back pain is controlled leg symptoms markedly improved. Patient has been up and ambulating. Physical Exam Physical Exam: Patient is sitting at her bedside. Is comfortable. Good strength testing. Results & Data Vital Signs (Past 12 Hours) Vital Signs Temp Pulse Pulse Resp BP Pulse Ox O2 Del Method 05/18/24 08:07 37 C 98 H 18 132/71 95 Room Air 05/18/24 03:00 36.9 C 90 16 101/65 96 Room Air 05/17/24 23:57 36.8 C 88 16 117/67 92 Room Air Queries Orthopedic Spine Obesity: Yes
[2024-05-18] MEDS ORDERED: hydroCHLOROthiazide 25 MG TAB PO SCH (09:00)
[2024-05-18] MEDS: dexAMETHasone 6 MG in SYRINGE 0 ML IV SCH (09:08)
[2024-05-18] MEDS: ASPIRIN 81 MG ECTAB PO SCH (09:09)
[2024-05-18] MEDS: MAGNESIUM OXIDE 400 MG TAB PO SCH (13:34)
[2024-05-18] MEDS: SODIUM CHLORIDE 0.9% 500 ML IV ONE (14:59)
[2024-05-19 08:01] LABS: Hematocrit (blood only) 36.7 % (42.0-52.0); Hemoglobin 12.3 g/dl (14.0-18.0); Mean Corpuscular Hemoglobin 30.6 pg (25.0-34.0); Mean Corpuscular Hgb Conc 33.5 g/dL (32.0-36.0); Mean Corpuscular Volume 91.3 fL (80.0-100.0); Platelet Count 205 K/uL (130-400); RDW Coefficient of Variation 14.6 % (11.5-14.5); RDW Standard Deviation 48.9 fL (36.4-46.3); Red Blood Count 4.02 M/uL (4.70-6.10); White Blood Count 16.87 K/ul (4.8-10.8)
[2024-05-19 08:19] LABS: BUN Creatinine Ratio 29.1 (10-20); Calcium 8.6 mg/dl (8.6-10.3); Creatinine Clr Calc Pharmacy 160.4 ml/min; Magnesium 2.2 mg/dl (1.7-2.4); Phosphorus 2.6 mg/dl (2.5-4.9); Potassium 4.5 mmol/L (3.5-5.1)
--- NOTE | 2024-05-19 10:20 | Orthopedic Progress Note ---
Date of Service May 19, 2024 Assessment & Plan (1) Lumbosacral spondylosis with radiculopathy: Plan: At this time we will continue physical therapy monitor his ROCIO output anticipate discharge home tomorrow. Admission and Anticipated Discharge Date Admission Date: May 17, 2024 Subjective Patient's back pain is controlled leg symptoms markedly improved Physical Exam Physical Exam: Patient is in bed at this time. He is comfortable. Is consented testing. Results & Data Vital Signs (Past 12 Hours) Vital Signs Temp Pulse Resp BP Pulse Ox O2 Del Method 05/19/24 07:05 36.6 C 83 16 104/67 93 Room Air Queries Orthopedic Spine Obesity: Yes
[2024-05-19] MEDS: traMADol HCL 50 MG TABLET PO PRN (12:41)
[2024-05-19 14:41] VITALS: TEMP 98.2
--- NOTE | 2024-05-19 15:34 | Hospitalist Progress Note ---
Date of Service May 19, 2024 Assessment & Plan (1) Lumbosacral spondylosis with radiculopathy: Plan This is a 53 y/o male with hx CAD s/p stent, rheumatoid arthritis, HTN, hyperlipidemia, ELOISA (not on CPAP), and lumbosacral spondylosis w/ radiculopathy who underwent revision of L4-S1 decompression and fusion by Dr. Stern. Reported no acute complaints post-operatively. Review of operative note reports EBL of 700 ml. Lumbosacral spondylosis with radiculopathy: - Pain control, activity, and DVT prophylaxis per primary service - Encourage incentive spirometry, wean O2 as tolerated - CBC in the AM to monitor for post-op blood loss anemia. Pre-op Hgb on 04/22/24 was 14.9 PT/OT as tolerated Acute blood loss anemia, post-op, vs. dilutional - pre-op Hgb 14.9, stable postop - no need for blood transfusion at this time - cont. to monitor H&H Rheumatoid arthritis: Chronic, stable. No current complaints related to this. Does note some generalized aches and pains but attributes to falling down the stairs the day before the surgery. CAD (coronary artery disease): Chronic, stable. Denies anginal symptoms Resume Plavix per ortho, continue aspirin Sleep apnea: Does not use CPAP at home - monitor for nocturnal hypoxemia, especially if requiring narcotics for pain control Hypertension: Hold HCTZ, lisinopril while inpt Monitor BP closely. Thank you for this consultation. We will continue to follow the patient with you. [facility] via [employer]. DIet: regular DVT prophylaxis: per ortho Dispo: per ortho Admission and Anticipated Discharge Date Admission Date: May 17, 2024 Subjective patient was seen sitting in a chair at bedside. Family members at bedside States he is now concerned about his right leg feels like it will give way and feels "wonky" asking that orthopedic surgery be notified. Dr. Stern was advised. Family member also concerned about him having to navigate stairs at home. Patient otherwise denying any chest pain, shortness of breath, palpitations, nausea vomiting, abdominal pain or diarrhea or constipation. Does note that he has started to pass gas Review of Systems Review of Systems: All systems reviewed & are unremarkable except as noted in Subjective Physical Exam Physical Exam: General: Alert, oriented. No acute distress Psych: Appropriate mood and affect Neuro: difficulty with movements in the chair HEENT: NC/AT CV: RRR Resp: Breath sounds clear bilaterally, no increased effort of breathing Abdomen: Soft, nontender Results & Data Results & Data Vital Signs (Past 12 Hours) Vital Signs Temp Pulse Resp BP Pulse Ox O2 Del Method 05/19/24 14:40 36.8 C 84 16 126/72 93 Room Air 05/19/24 07:45 Room Air 05/19/24 07:05 36.6 C 83 16 104/67 93 Room Air
[2024-05-19 21:16] VITALS: PULSE 88
[2024-05-20 05:54] LABS: Hematocrit (blood only) 35.4 % (42.0-52.0); Hemoglobin 11.8 g/dl (14.0-18.0); Mean Corpuscular Hemoglobin 30.3 pg (25.0-34.0); Mean Corpuscular Hgb Conc 33.3 g/dL (32.0-36.0); Mean Corpuscular Volume 90.8 fL (80.0-100.0); Mean Platelet Volume 11.4 fL (9.4-12.4); Platelet Count 205 K/uL (130-400); RDW Coefficient of Variation 14.5 % (11.5-14.5); RDW Standard Deviation 47.4 fL (36.4-46.3); White Blood Count 15.63 K/ul (4.8-10.8)
[2024-05-20 06:10] LABS: BUN Creatinine Ratio 27.3 (10-20); Calcium 8.4 mg/dl (8.6-10.3); Creatinine Clr Calc Pharmacy 164.6 ml/min; Potassium 4.1 mmol/L (3.5-5.1)
[2024-05-20 07:51] VITALS: RESP 18; O2SAT 96
--- NOTE | 2024-05-20 10:35 | Discharge Summary ---
Date of Service May 20, 2024 Admission HPI Per Admitting Provider This is a 53-year-old male who presents for chronic persistent back and bilateral leg pain after failing course of nonoperative care is here for surgical invention. Principal Diagnosis Lumbar spondylosis with radiculopathy Discharge Data Allergies Allergy/AdvReac Type Severity Reaction Status Date / Time epinephrine Allergy Intermediate "my BP Verified 05/17/24 09:45 drops, chest pain, hives" Consultations 05/17/24 16:10 Consult Hospitalist Routine Procedures Performed Operation Date: 05/17/24 11:05 Actual Procedures p L4-S1 Revision Decompression and Fusion, Spinal Cord Monitoring(Not Applicable) - David Stern DO Ordered Studies 05/17/24 [place] lumbar spine 2-3V Routine Hospital Course (1) Lumbosacral spondylosis with radiculopathy: Patient went lumbar decompression fusion tolerated as well as taken to orthopedic for postoperative. Postop he progressed appropriately. Leg pain improved. Back pain controlled. Excellent strength testing. ROCIO drain decreasing. Simply discharged home. Discharge orders instructions from the chart for further review. Total Time Total Time Spent Total Time Spent (In Minutes): 20 minutes Discharge Plan Discharge Items Patient Disposition: Home - Self-Care Reason For Visit: POSTOP Discharge Diagnosis: This lumbar lumbar spondylosis with radiculopathy. Activity: As commented below Non-emergency contact: Primary Care Provider Call non-emergency contact if: you have any medication questions Follow-up/Referrals: Dafne Adan DO [Primary Care Provider] - Diet: Regular Addtl Attending Provider Instructions: ACTIVITY RECOMMENDATIONS: SELF CARE INSTRUCTIONS AFTER THORACIC/LUMBAR FUSIONS 1. You may walk to your tolerance. It is good exercise for your legs and back. Expect some back and intermittent leg aches and pains. 2. You may perform "counter-top" level activities (make a sandwich, roddy with a project, etc.). 3. No bending or lifting of more than 10 pounds or back twisting of any nature (roll like a log when turning in bed). 4. You may ride in a car for 20-30 minutes at a time. No driving until after your first visit with your doctor. 5. Frequent changes of position and restricting sitting to 30 minutes at a time will help limit the amount of back spasms and stiffness you may experience. 6. You may discontinue the use of ambulatory aids (cane, crutches, etc.) once your strength and confidence allow. 7. You may mainframe programmer the shower and let water strike your incision when you arrive home at least once daily. Do not take a tub bath, sit in a hot tub or go into a swimming pool until after your first recheck in the office. 8. You may resume previous diet. SPECIAL CARE INSTRUCTIONS: VERY IMPORTANT TO READ AND REVIEW A. Your surgical incision has been closed with a cosmetic suture under the skin that will dissolve in about 6 weeks. In 14 days, you can use a pair of clean scissors and cut the suture that is left outside of the skin at the ends of your incision. 1. The small skin tapes can be removed 7 days after surgery if they have not fallen off by that point. 2. You may keep the wound open to air as much as possible to promote healing after post-op day number 5 unless told otherwise by your doctor. 3. If you think the wound looks like it is becoming infected (redness or worsening drainage) and/or you are experiencing fever, chill or worsening back pain and muscle spasms, contact the office so that we may evaluate you as soon as possible. B. Complications are uncommon, but please contact us if you have any signs or symptoms of: 1. wound infection (fever higher than 102.5 degrees F, redness, separation of wound, drainage, or increasing pain from the incision) 2. blood clots in legs (pain, swelling, redness and warmth in legs) 3. urinary tract infection (fever higher than 102.5 degrees F, burning upon urination or increased frequency of urination) 4. nerve problems (inability to walk on your toes or heels, numbness, loss of bowel or bladder control) 5. any other symptoms that concern you C. Please call the office at if you have any concerns or questions about your operation or recovery. D. No smoking! Smoking drastically decreases the chance of a solid fusion. E. Do not take any anti-inflammatory medications (Indocin, Advil, Motrin, Aspirin, Naprosyn, etc.) as these may inhibit the chance of a solid fusion. Tylenol is okay to take for pain. MANAGING PAIN AFTER SPINAL SURGERY 1. Narcotic medication is intended for short-term use and will be provided for surgical pain. Surgical pain usually lasts for a period of 4-6 weeks. Narcotic medication includes Percocet, Vicodin, Darvocet, Tylenol #3 or Lortab. 2. Longer-term pain is more appropriately treated with non-narcotic medication such as Tylenol ES. 3. Muscle spasm is not appropriately treated with narcotics. Muscle relaxers such as Soma, Flexeril or Skelaxin can be used along with Tylenol ES. 4. Remember that we all live with some "aches and pains". This is not unusual or uncommon after an injury or as we get older. a. Back pain is expected and may include muscle spasms for 4 to 6 weeks after surgery. The pain should gradually improve. If the pain worsens for no apparent reason, please contact the office. b. Intermittent leg pain may also be experienced and should not be concerned about unless it worsens for no apparent reason. If so, please contact the office. 5. We will provide appropriate medication within the normal guidelines of their prescribed use. We will also be very cautious and aware of potential abuse and extended duration of patients' medication needs. a. Pain medications are for your comfort and to assist with sleep and rest so that the tissue can heal. They are not provided in order to return to normal activity and should not be used through the day. To do so or worsening pain at night can result from ongoing tissue damage and development of tolerance to the prescribed medicine. 6. Please allow 2-3 days to process refills. Prescriptions will not be mailed but must be picked up at the office. FOLLOW UP VISIT: Keep your scheduled follow-up appointment. Any questions, please call the office at . Pending Studies at Discharge: No Stand-Alone Forms: [facility], Smoking Cessation Medications and DC Order Prescriptions: New tramadol 50 mg tablet 50 mg PO Q6H PRN (Reason: pain, moderate) Qty: 30 0RF oxycodone 5 mg tablet 5 mg PO Q6H PRN (Reason: pain) Qty: 30 0RF Continued bupropion HCl 100 mg Tablet 200 mg PO BID hydrochlorothiazide 25 mg Tablet 25 mg PO QAM duloxetine [Cymbalta] 60 mg Capsule,Delayed Release(Dr/Ec) 60 mg PO HS metoprolol tartrate 50 mg Tablet 50 mg PO BID rosuvastatin [Crestor] 20 mg Tablet 20 mg PO HS multivitamin Tablet 1 tab PO HS aspirin 81 mg Tablet,Delayed Release (Dr/Ec) 81 mg PO QAM lisinopril 40 mg Tablet 40 mg PO HS cyclobenzaprine 10 mg Tablet 10 mg PO BID PRN (Reason: muscle spasms) hydrocodone-acetaminophen 5-325 mg Tablet 1 tab PO Q6H PRN (Reason: Pain) pregabalin 75 mg capsule 75 mg PO TID Held clopidogrel [Plavix] 75 mg Tablet 75 mg PO QAM Discharge Orders: Discharge Order (Routine); Ordered 05/20/24 Ordered By: David Stern Admission Data Admit Date/Time: 05/17/24 13:32 Attending Provider: David Stern Admit Provider: David Stern Primary Care Provider: Dafne Adan Other Providers: Alan Flores
--- NOTE | 2024-05-20 11:04 | Hospitalist Progress Note ---
Date of Service May 20, 2024 Assessment & Plan (1) Lumbosacral spondylosis with radiculopathy: Plan This is a 53 y/o male with hx CAD s/p stent, rheumatoid arthritis, HTN, hyperlipidemia, ELOISA (not on CPAP), and lumbosacral spondylosis w/ radiculopathy who underwent revision of L4-S1 decompression and fusion by Dr. Stern. Reported no acute complaints post-operatively. Review of operative note reports EBL of 700 ml. Lumbosacral spondylosis with radiculopathy: - Pain control, activity, and DVT prophylaxis per primary service - Encourage incentive spirometry, wean O2 as tolerated - CBC to monitor for post-op blood loss anemia. Pre-op Hgb on 04/22/24 was 14.9, hgb 11.8 on discharge -PT/OT as tolerated -Pt discharged home on 05/20/24 Acute blood loss anemia, post-op, vs. dilutional - pre-op Hgb 14.9, stable postop at 11.8 on discharge - no need for blood transfusion at this time - cont. to monitor H&H Rheumatoid arthritis: Chronic, stable. No current complaints related to this. Does note some generalized aches and pains but attributes to falling down the stairs the day before the surgery. CAD (coronary artery disease): Chronic, stable. Denies anginal symptoms Resume Plavix per ortho, continue aspirin Sleep apnea: Does not use CPAP at home - monitor for nocturnal hypoxemia, especially if requiring narcotics for pain control PCP followup after discharge Hypertension: Held HCTZ, lisinopril while inpt Monitor BP closely. Resume on discharge Thank you for this consultation. We will continue to follow the patient with you. [facility] via [employer]. Admission and Anticipated Discharge Date Admission Date: May 17, 2024 Subjective patient was seen with family at bedside Denied acute concerns Noted that he would be discharged today by the Ortho service Denying any chest pain, shortness of breath or palpitations. States that he had a bowel movement Review of Systems Review of Systems: All systems reviewed & are unremarkable except as noted in Subjective Physical Exam Physical Exam: General: Alert, oriented. No acute distress Psych: Appropriate mood and affect Neuro: difficulty with movements in the chair HEENT: NC/AT CV: RRR Resp: Breath sounds clear bilaterally, no increased effort of breathing Abdomen: Soft, nontender Results & Data Results & Data Vital Signs (Past 12 Hours) Vital Signs Temp Pulse Resp BP Pulse Ox O2 Del Method 05/20/24 07:49 36.8 C 88 18 127/66 96 Room Air Diagnostic Findings Lumbar Spine X-Ray 05/17/24 00:00 FL lumbar spine 2-3V CLINICAL HISTORY: L4-S1 REVISION DECOMP/FUSION COMPARISON STUDY: 03/17/2023 FLUOROSCOPY TIME: 36.9 seconds FLUOROSCOPY IMAGES: 2 EXPOSURE DOSE: 37.20 mGy FINDINGS: Posterior interbody arjun and screw fusion with discectomy noted at L4- S1. No unexpected opaque foreign bodies identified. The hardware appears intact. Note that the images were submitted following completion of the surgery. IMPRESSION: Fluoroscopic assistance as above. ACT 112: Negative or not required by law. Electronically signed by: Valentin Lara M.D. 05/17/2024 1:43 PM
[2024-05-20 11:09] VITALS: BP 116/71
== END 2024-05-20 11:44 | disposition home or self-care (01) | DRG 427 ==
LOC: ASU 08:53 → 3W 13:32